=== PATIENT | female | born 1930 | race Two or more races ===

== ENCOUNTER 2018-09-25 19:02 | Inpatient (IN) | payer MEDICARE, OTHER ==
[~2018-09-25] VITALS: Ht 157.5 cm; Wt 64.4 kg
--- NOTE | 2018-09-25 19:03 | NUR ---
DR RUBIO AT BEDSIDE
--- NOTE | 2018-09-25 19:12 | NUR ---
KAEL GARCIA, FROM [facility], [facility] FOR GEROPSYCH ADMISSION, TO ER BED 7, HOOKED TO MONITOR, AWAITING MD THAKUR
--- NOTE | 2018-09-25 19:30 | NUR ---
PROCESSING ASSISTANT AT BEDSIDE FOR BLOOD DRAW
--- NOTE | 2018-09-25 19:38 | NUR ---
RECEIVED REPORT FROM JOAN STEINER FOR MAYA
--- NOTE | 2018-09-25 19:38 | NUR ---
REPORT GIVEN TO NGOC STEINER FOR MAYA
[2018-09-25 19:47] LABS: BASOPHILS % (AUTO) 0.6 % (0.0-2.0); EOSINOPHILS % (AUTO) 0.5 % (0.0-6.0); HEMATOCRIT 45 % (33-45); HEMOGLOBIN 14.2 g/dL (11.5-14.8); MEAN CORPUSCULAR HGB CONC 32 g/dl (31.0-36.0); MEAN CORPUSCULAR VOLUME 76 fL (82-100); MONOCYTES # (AUTO) 0.5 /CMM (0.1-1.30); MONOCYTES % (AUTO) 6.3 % (2.0-12.0); NEUTROPHILS # (AUTO) 6.1 /CMM (1.8-8.9); NEUTROPHILS % (AUTO) 79.6 % (43.0-81.0); PLATELET COUNT (AUTO) 439 /CMM (150-450); RED BLOOD CELL COUNT(AUTO) 5.95 MIL/uL (4.0-5.2); WHITE BLOOD COUNT (AUTO) 7.7 K/uL (4.3-11.0)
--- NOTE | 2018-09-25 19:50 | NUR ---
URINE COLLECTED AND SENT TO LAB
[2018-09-25 19:57] LABS: CALCIUM, SERUM 9.7 mg/dL (8.5-10.1); CARBON DIOXIDE 23 mmol/L (21-32); CHLORIDE 100 mmol/L (98-107); CREATININE 0.6 mg/dL (0.6-1.3); GLUCOSE 129 mg/dL (74-106); POTASSIUM 3.6 mmol/L (3.5-5.1); SODIUM SERUM 136 mmol/L (136-145); UREA NITROGEN, BLOOD 10 mg/dL (7-18)
[2018-09-25 20:04] LABS: ALANINE AMINOTRANSFERASE 10 U/L (12-78); ALBUMIN 3.8 g/dL (3.4-5.0); ALCOHOL, BLOOD < 3 mg/dL (0-0); ALKALINE PHOSPHATASE 96 U/L (46-116); ASPARTATE AMINOTRANSFERASE 14 U/L (15-37); BILIRUBIN,DIRECT 0.1 mg/dL (0.0-0.2); BILIRUBIN,TOTAL 0.5 mg/dL (0.2-1.0); TOTAL PROTEIN, SERUM 7.6 g/dL (6.4-8.2)
[2018-09-25 20:04] LABS: APPEARANCE,URINE Clear (CLEAR); BILIRUBIN,URINE Negative (NEGATIVE); BLOOD, URINE Trace-lysed Ery/uL (NEGATIVE); COLOR,URINE Yellow (YELLOW); KETONES,URINE 80 (NEGATIVE); LEUKOCYTE ESTERASE ,URINE Negative (NEGATIVE); NITRITE, URINE Negative (NEGATIVE); PROTEIN,URINE 100 mg/dl (NEGATIVE); UGLUCOSE Negative (NEGATIVE); UROBILINOGEN,URINE 0.2 EU/dL (0.2)
[2018-09-25 20:06] LABS: ACETAMINOPHEN < 2 ug/ml (10-30); SALICYLATE < 2.8 mg/dL (2.8-20.0)
--- NOTE | 2018-09-25 20:10 | NUR ---
PT HYPERTENSIVE, MD AWARE
[2018-09-25] MEDS ORDERED: CLONIDINE HCL 0.1 MG TABLET ONE ×2 (20:18→20:19)
[2018-09-25 20:23] LABS: BACTERIA,URINE Moderate /HPF (None Seen); RBC,URINE 2-4/HPF /HPF (0-2); SQUAMOUS EPITHELIAL CELL,UR Few /HPF (None Seen); URINE AMORPHOUS URATE Few /HPF (None Seen); WBC,URINE 0-2 /HPF (0-3)
[2018-09-25] MEDS ORDERED: CLONIDINE HCL 0.1 MG TABLET PO ONE (20:30)
--- NOTE | 2018-09-25 21:01 | NUR ---
PT RESTING COMFORTABLY IN BED. AAOX3. BP IMPROVED, MD AWARE
--- NOTE | 2018-09-25 22:18 | NUR ---
GAVE REPORT TO MEL STEINER FOR MAYA
[2018-09-25] MEDS ORDERED: DONE10TA44 PO (22:32)
[2018-09-25] MEDS ORDERED: TRAZ-214 PO (22:32)
[2018-09-25] MEDS ORDERED: CYAN-24 PO (22:32)
[2018-09-25] MEDS ORDERED: ASCO500T9 PO (22:32)
[2018-09-25] MEDS ORDERED: GABA-534 PO (22:32)
[2018-09-25] MEDS ORDERED: SIME125T62 PO (22:32)
[2018-09-25] MEDS ORDERED: RISP1TAB27 PO (22:32)
[2018-09-25] MEDS ORDERED: ZINC220T PO (22:32)
[2018-09-25] MEDS ORDERED: FLUT16SP16 NS (22:32)
[2018-09-25] MEDS ORDERED: SUCR1TAB31 PO (22:32)
[2018-09-25] MEDS ORDERED: OMEP20CA10 PO (22:32)
[2018-09-25] MEDS ORDERED: METF-440 PO (22:32)
[2018-09-25] MEDS ORDERED: VITA113O5 TP (22:32)
[2018-09-25] MEDS ORDERED: MELO-105 PO (22:32)
[2018-09-25] MEDS ORDERED: CELE200C PO (22:32)
[2018-09-25] MEDS ORDERED: BISA-79 PO (22:32)
--- NOTE | 2018-09-25 23:01 | NUR ---
PT TRANSFERRED TO [facility] 219 VIA GURMIRELLA WITH EMT
[2018-09-25] MEDS ORDERED: SUCRALFATE 1 G TABLET PO SCH (23:30)
[2018-09-25] MEDS ORDERED: ACETAMINOPHEN 325 MG TABLET PO PRN (23:30)
[2018-09-25] MEDS ORDERED: BISACODYL (5 MG) 5 MG TABLET.DR PO SCH (23:30)
[2018-09-25] MEDS ORDERED: ONDANSETRON HCL/PF 4 MG/2 ML VIAL IVP PRN (23:30)
[2018-09-25] MEDS ORDERED: HYDROCODONE/APAP 5/325MG 1 EACH TABLET PO PRN (23:30)
[2018-09-25] MEDS ORDERED: MAG HYDROX/AL HYDROX/SIMETH 30 ML UDC PO PRN (23:30)
[2018-09-25] MEDS ORDERED: MAGNESIUM HYDROXIDE 30 ML UDC PO PRN (23:30)
[2018-09-26] MEDS ORDERED: MAG HYDROX/AL HYDROX/SIMETH 30 ML UDC PO PRN
[2018-09-26] MEDS ORDERED: MAGNESIUM HYDROXIDE 30 ML UDC PO PRN
[2018-09-26] MEDS ORDERED: LORAZEPAM 0.5 MG TABLET PO PRN
[2018-09-26] MEDS ORDERED: TEMAZEPAM 7.5 MG CAPSULE PO PRN
[2018-09-26] MEDS ORDERED: ACETAMINOPHEN 325 MG TABLET PO PRN
--- NOTE | 2018-09-26 00:44 | NUR ---
admitted this 87 years old female from E.R patient was place on 5150 hold due to dangers to other trying to hitting the staff. patient has history of schizophrenia,, advise explain and serve to the patient patient refused to sign the consent paper, body assessment is done with 2 RN sacral area has a old wound red pic is taken and place in the chart patient is asleep right now will continues monitor the patient for safety and fall
[2018-09-26 07:33] LABS: CHOLESTEROL 197 mg/dL (<200); HDL CHOLESTEROL 42 mg/dL (40-60); LDL 139 mg/dL (0-99); TRIGLYCERIDES 150 mg/dL (30-150)
[2018-09-26 07:41] LABS: ALANINE AMINOTRANSFERASE 13 U/L (12-78); ALBUMIN 3.6 g/dL (3.4-5.0); ALKALINE PHOSPHATASE 79 U/L (46-116); ASPARTATE AMINOTRANSFERASE 10 U/L (15-37); BILIRUBIN,TOTAL 0.7 mg/dL (0.2-1.0); CALCIUM, SERUM 9.6 mg/dL (8.5-10.1); CARBON DIOXIDE 24 mmol/L (21-32); CHLORIDE 101 mmol/L (98-107); CREATININE 1.1 mg/dL (0.6-1.3); GLUCOSE 122 mg/dL (74-106); MAGNESIUM 2.1 mg/dL (1.8-2.4); POTASSIUM 4.2 mmol/L (3.5-5.1); SODIUM SERUM 136 mmol/L (136-145); TOTAL PROTEIN, SERUM 6.9 g/dL (6.4-8.2); UREA NITROGEN, BLOOD 18 mg/dL (7-18)
[2018-09-26 08:00] VITALS: BP 101/63
[2018-09-26] MEDS ORDERED: GLUCERNA SHAKE 237 ML CAN PO SCH (08:00)
[2018-09-26] MEDS: PANTOPRAZOLE 40 MG TABLET.DR PO SCH (08:54)
[2018-09-26] MEDS: ZINC SULFATE 220 MG CAPSULE PO SCH (08:54)
[2018-09-26] MEDS: risperiDONE 1 MG TABLET PO SCH ×2 (08:54→16:31)
[2018-09-26] MEDS: ASCORBIC ACID 500 MG TABLET PO SCH (08:54)
[2018-09-26] MEDS: METFORMIN 500 MG TABLET PO SCH ×2 (08:54→16:31)
[2018-09-26] MEDS: DONEPEZIL 5 MG TABLET PO SCH (08:54)
[2018-09-26] MEDS: GABAPENTIN 300 MG CAPSULE PO SCH ×3 (08:54→16:31)
[2018-09-26] MEDS: SIMETHICONE 80 MG TAB.CHEW PO SCH ×3 (08:55→16:31)
[2018-09-26] MEDS: CYANOCOBALAMIN 500 MCG TABLET PO SCH (08:55)
[2018-09-26] MEDS: GLUCERNA SHAKE 237 ML CAN PO SCH ×2 (08:56→16:33)
[2018-09-26] MEDS: Z GUARD REMEDY 2 OZ OINT TP PRN (09:00)
[2018-09-26] MEDS: FLUTICASONE PROPIONATE 16 GM BOTTLE NS SCH ×2 (09:00→16:35)
--- NOTE | 2018-09-26 12:16 | NUR ---
SW contacted Ute Archer, websphere administrator at [facility] [address] [facility], [place] [address] who confirmed pt is able to return once stable for discharge.
--- NOTE | 2018-09-26 12:18 | NUR ---
SW contacted pts daughter Indu Bush [phone] for discharge planning and collateral information.
--- NOTE | 2018-09-26 13:38 | NUR ---
INITIAL DISCHARGE PLAN: Per patient's daughter Indu [phone], pt will return to [facility] [id number] [place] [address] . RADHA spoke with Ute Archer, defense travel administrator who confirmed pt is able to return once stable for discharge. RADHA will help form a safe and proper discharge in collaboration with .
--- NOTE | 2018-09-26 15:26 | NUR ---
SW received DPOA paperwork from patient's daughter Indu [phone] via fax.
[2018-09-26 16:06] VITALS: BP 107/63
--- NOTE | 2018-09-26 18:35 | NUR ---
GPS/RN-NOTES PER RAILWAY SWITCH OPERATOR STAFF PATIENT DID NOT URINATE SINCE MORNING, BLADDER SCAN SHOWS 365ML URINE.PATIENT EAT AND DRINK DURING THE DAY. CALLED [facility] FOR DNP EVANGELISTA (SPOKE TO STEPHANIE ) . STILL AWAITING FOR DARIA NAIDU CALL BACK. WILL ENDORSE TO INCOMING NURSE FOR F/U AND CONTINUITY OF CARE.
--- NOTE | 2018-09-26 19:30 | NUR ---
GPS RN NOTE, RECEIVED PATIENT AWAKE AND IN BED NO S/S OR COMPLAINTS OF PAIN AT THIS TIME. PATIENT IS DISPLAYING NO S/S OF APPARENT DISTRESS AT THIS TIME. PATIENT BREATHING IS UNLABORED WITH EQUAL RISE AND FALL OF THE CHEST. PATIENT IS ALERT AND ORIENTED X 2 ON ROOM AIR WITH A SPO2 0F 96%. PATIENT IS MED COMPLAINT, DISORGANIZED, CONFUSED AT TIMES, AND NEEDS REORIENTATION. PATIENT DENIES SUICIDE AND HOMICIDAL IDEATIONS AT THIS TIME. PATIENT ASSISTED WITH TURNING AND REPOSITIONING Q2HR AND PRN FOR COMFORT AND CIRCULATION. PATIENT HAS NO NEEDS AT THIS TIME. PATIENT EDUCATED ON THE USE OF THE CALL CELESTIN. PATIENT BED SIDE RAILS ARE UP X 2 FOR SAFETY, BED IS LOCKED AND LOW. WILL CONTINUE TO MONITOR AND MAINTAIN SAFETY Q15 MIN WITH THE HELP OF STAFF.
[2018-09-26] MEDS ORDERED: IV NS 0.9% 1,000 ML BAG IV ONE (20:30)
--- NOTE | 2018-09-26 20:30 | NUR ---
GPS RN NOTE, PATIENT VITAL SIGNS ARE FOLLOWS B/P 100/48, PULSE 58, TEMP 98.1, RES 18, SPO2 96%. PAGED [facility] AND INFORMED WINIFRED WYNN OF MY FINDINGS. WINIFRED WYNN ORDERED TO GIVE 1 LITER OF NORMAL SALINE BOLUS AND TO HAVE A BMP, MAG, PHOS DRAWN IN THE A.M. ALL ORDERS NOTED AND CARRIED OUT. WILL CONTINUE TO MONITOR THIS PATIENT.
[2018-09-27] VITALS: BP 109/46
--- NOTE | 2018-09-27 02:50 | NUR ---
GPS RN NOTE, PATIENT HAS A COMPLAINT OF CONSTIPATION AND IS REQUESTING DULCOLAX AT THIS TIME. PATIENT VITAL SIGNS ARE STABLE. GAVE DULCOLAX 10 MG PO PRN. WILL REASSESS FOR CONSTIPATION AND I WILL CONTINUE TO MONITOR THIS PATIENT.
[2018-09-27 07:06] LABS: BASOPHILS # (AUTO) 0.1 /CMM (0.0-0.2); BASOPHILS % (AUTO) 0.7 % (0.0-2.0); HEMATOCRIT 31 % (33-45); HEMOGLOBIN 10.2 g/dL (11.5-14.8); LYMPHOCYTES # (AUTO) 1.2 /CMM (0.8-4.8); LYMPHOCYTES % (AUTO) 14.9 % (20.0-44.0); MEAN CORPUSCULAR HGB CONC 33 g/dl (31.0-36.0); MEAN CORPUSCULAR VOLUME 73 fL (82-100); MONOCYTES # (AUTO) 0.6 /CMM (0.1-1.30); NEUTROPHILS # (AUTO) 5.8 /CMM (1.8-8.9); NEUTROPHILS % (AUTO) 74.4 % (43.0-81.0); PLATELET COUNT (AUTO) 404 /CMM (150-450); RED BLOOD CELL COUNT(AUTO) 4.24 MIL/uL (4.0-5.2); WHITE BLOOD COUNT (AUTO) 7.8 K/uL (4.3-11.0)
[2018-09-27 07:18] LABS: ALANINE AMINOTRANSFERASE 18 U/L (12-78); ALBUMIN 3.1 g/dL (3.4-5.0); ALKALINE PHOSPHATASE 71 U/L (46-116); ASPARTATE AMINOTRANSFERASE 10 U/L (15-37); BILIRUBIN,TOTAL 0.5 mg/dL (0.2-1.0); CALCIUM, SERUM 8.9 mg/dL (8.5-10.1); CARBON DIOXIDE 25 mmol/L (21-32); CHLORIDE 97 mmol/L (98-107); CREATININE 0.9 mg/dL (0.6-1.3); GLUCOSE 110 mg/dL (74-106); MAGNESIUM 1.9 mg/dL (1.8-2.4); PHOSPHORUS 3.7 mg/dL (2.5-4.9); POTASSIUM 3.3 mmol/L (3.5-5.1); SODIUM SERUM 132 mmol/L (136-145); TOTAL PROTEIN, SERUM 5.9 g/dL (6.4-8.2); UREA NITROGEN, BLOOD 22 mg/dL (7-18)
[2018-09-27 08:00] VITALS: BP 154/63
[2018-09-27] MEDS: GABAPENTIN 300 MG CAPSULE PO SCH ×3 (08:19→16:56)
[2018-09-27] MEDS: ASCORBIC ACID 500 MG TABLET PO SCH (08:19)
[2018-09-27] MEDS: PANTOPRAZOLE 40 MG TABLET.DR PO SCH (08:19)
[2018-09-27] MEDS: SIMETHICONE 80 MG TAB.CHEW PO SCH ×4 (08:20→17:00)
[2018-09-27] MEDS: risperiDONE 1 MG TABLET PO SCH ×2 (08:20→16:56)
[2018-09-27] MEDS: METFORMIN 500 MG TABLET PO SCH ×2 (08:20→16:57)
[2018-09-27] MEDS: DONEPEZIL 5 MG TABLET PO SCH (08:20)
[2018-09-27] MEDS: CYANOCOBALAMIN 500 MCG TABLET PO SCH (08:21)
[2018-09-27] MEDS: ZINC SULFATE 220 MG CAPSULE PO SCH (08:26)
[2018-09-27] MEDS: FLUTICASONE PROPIONATE 16 GM BOTTLE NS SCH ×3 (08:47→17:00)
[2018-09-27] MEDS: GLUCERNA SHAKE 237 ML CAN PO SCH ×2 (08:47→17:06)
--- NOTE | 2018-09-27 09:28 | NUR ---
WOUND CARE CONSULT: PT PRESENTS WITH SACRAL SCARRING, PRESENT ON ADMISSION. RECOMMENDATIONS MADE FOR SKIN PROTECTION. DISCUSSED WITH NURSING STAFF. CURRENT CHRISTA SCORE IS 17. WILL SEE PRN. NAYLOR IN AGREEMENT WITH PLAN OF CARE. Addendum: 09/27/18 at 6657 by LAMIN COVARRUBIAS WNDNU Amended: Links added.
[2018-09-27 09:58] LABS: CHOLESTEROL 154 mg/dL (<200); HDL CHOLESTEROL 36 mg/dL (40-60); LDL 108 mg/dL (0-99); TRIGLYCERIDES 159 mg/dL (30-150)
[2018-09-27] MEDS ORDERED: POTASSIUM CHLORIDE 20 MEQ TAB.PRT.SR PO ONE (11:30)
[2018-09-27 16:00] VITALS: BP 155/83
--- NOTE | 2018-09-27 17:13 | NUR ---
GPS RN NOTES: PATIENT NOTED TO BE CONFUSED AT THIS TIME. SHE REFUSED SOME OF HER MEDICATION-FLUNASE AND MYLICON. PER PATIENT "I AM NOT SICK, NOTHING IS WRONG WITH ME". NURSE EXPLAINED TO THE PATIENT THREE TIMES BUT PATIENT STILL REFUSED. WILL ENDORSE TO ARTIFICIAL INSEMINATOR NURSE.
[2018-09-27 20:00] VITALS: BP 158/69
[2018-09-27 21:15] VITALS: BP 143/70
--- NOTE | 2018-09-28 02:58 | NUR ---
GPS-RN NOTES: PATIENT NOT HAVING BOWEL MOVEMENT FOR 3 DAYS. NOTIFIED WINIFRED OBTAINED ORDERS OF DULCOLAX NOTED AND CARRIED OUT. UPON ADMINISTERING MEDICATION VIA RECTAL, NOTED WITH BM SOFT BROWN STOOL, IN LARGE AMOUNT. DULCOLAX SUPPOSITORY NOT ADMINISTERED AND WASTED ON MED DISPOSAL.
[2018-09-28] MEDS ORDERED: BISACODYL SUPP (10 MG) 10 MG/SUPP.RECT SUPP.RECT RC PRN (03:00)
[2018-09-28 08:00] VITALS: BP 148/72
[2018-09-28] MEDS: METFORMIN 500 MG TABLET PO SCH ×2 (08:17→16:34)
[2018-09-28] MEDS: risperiDONE 1 MG TABLET PO SCH ×2 (08:17→16:34)
[2018-09-28] MEDS: SIMETHICONE 80 MG TAB.CHEW PO SCH ×3 (08:17→16:45)
[2018-09-28] MEDS: DONEPEZIL 5 MG TABLET PO SCH (08:17)
[2018-09-28] MEDS: CYANOCOBALAMIN 500 MCG TABLET PO SCH (08:17)
[2018-09-28] MEDS: ZINC SULFATE 220 MG CAPSULE PO SCH (08:17)
[2018-09-28] MEDS: PANTOPRAZOLE 40 MG TABLET.DR PO SCH (08:17)
[2018-09-28] MEDS: ASCORBIC ACID 500 MG TABLET PO SCH (08:17)
[2018-09-28] MEDS: GABAPENTIN 300 MG CAPSULE PO SCH ×3 (08:19→16:33)
[2018-09-28] MEDS: FLUTICASONE PROPIONATE 16 GM BOTTLE NS SCH ×2 (08:19→16:34)
[2018-09-28] MEDS: GLUCERNA SHAKE 237 ML CAN PO SCH ×2 (08:51→16:33)
[2018-09-28 16:00] VITALS: BP 112/52
[2018-09-28] MEDS: Z GUARD REMEDY 2 OZ OINT TP PRN (18:12)
[2018-09-28 20:00] VITALS: BP 152/75
[2018-09-29 08:00] VITALS: BP 144/70
[2018-09-29 08:13] LABS: BASOPHILS % (AUTO) 0.5 % (0.0-2.0); EOSINOPHILS % (AUTO) 0.7 % (0.0-6.0); HEMATOCRIT 36 % (33-45); HEMOGLOBIN 11.6 g/dL (11.5-14.8); LYMPHOCYTES # (AUTO) 1.1 /CMM (0.8-4.8); LYMPHOCYTES % (AUTO) 12.9 % (20.0-44.0); MEAN CORPUSCULAR HGB CONC 32 g/dl (31.0-36.0); MEAN CORPUSCULAR VOLUME 74 fL (82-100); MONOCYTES # (AUTO) 0.7 /CMM (0.1-1.30); MONOCYTES % (AUTO) 8.2 % (2.0-12.0); NEUTROPHILS # (AUTO) 6.7 /CMM (1.8-8.9); NEUTROPHILS % (AUTO) 77.7 % (43.0-81.0); PLATELET COUNT (AUTO) 444 /CMM (150-450); RED BLOOD CELL COUNT(AUTO) 4.93 MIL/uL (4.0-5.2); WHITE BLOOD COUNT (AUTO) 8.6 K/uL (4.3-11.0)
[2018-09-29 08:23] LABS: IRON, SERUM 34 ug/dl (50-175); TOTAL IRON BINDING CAPACITY 312 ug/dl (250-450)
[2018-09-29 08:26] LABS: CALCIUM, SERUM 9.4 mg/dL (8.5-10.1); CARBON DIOXIDE 28 mmol/L (21-32); CHLORIDE 102 mmol/L (98-107); CREATININE 0.7 mg/dL (0.6-1.3); GLUCOSE 134 mg/dL (74-106); POTASSIUM 3.8 mmol/L (3.5-5.1); SODIUM SERUM 138 mmol/L (136-145); UREA NITROGEN, BLOOD 16 mg/dL (7-18)
[2018-09-29] MEDS: GABAPENTIN 300 MG CAPSULE PO SCH ×3 (09:12→17:40)
[2018-09-29] MEDS: CYANOCOBALAMIN 500 MCG TABLET PO SCH (09:13)
[2018-09-29] MEDS: SIMETHICONE 80 MG TAB.CHEW PO SCH ×3 (09:13→17:40)
[2018-09-29] MEDS: PANTOPRAZOLE 40 MG TABLET.DR PO SCH (09:14)
[2018-09-29] MEDS: risperiDONE 1 MG TABLET PO SCH ×2 (09:14→17:40)
[2018-09-29] MEDS: METFORMIN 500 MG TABLET PO SCH ×2 (09:14→17:40)
[2018-09-29] MEDS: DONEPEZIL 5 MG TABLET PO SCH (09:14)
[2018-09-29] MEDS: ZINC SULFATE 220 MG CAPSULE PO SCH (09:14)
[2018-09-29] MEDS: ASCORBIC ACID 500 MG TABLET PO SCH (09:14)
[2018-09-29] MEDS: GLUCERNA SHAKE 237 ML CAN PO SCH ×2 (09:15→17:41)
[2018-09-29] MEDS: FLUTICASONE PROPIONATE 16 GM BOTTLE NS SCH ×2 (09:56→17:41)
[2018-09-29 16:00] VITALS: BP 155/51
[2018-09-29] MEDS: FERROUS SULFATE (325 MG) 325 MG/TAB TABLET PO SCH (17:40)
[2018-09-29 20:24] VITALS: BP 149/75
[2018-09-30 08:00] VITALS: BP 172/76
[2018-09-30] MEDS: risperiDONE 1 MG TABLET PO SCH ×2 (09:00→16:48)
[2018-09-30] MEDS: GABAPENTIN 300 MG CAPSULE PO SCH ×3 (09:00→16:49)
[2018-09-30] MEDS: FERROUS SULFATE (325 MG) 325 MG/TAB TABLET PO SCH (09:00)
[2018-09-30] MEDS: SIMETHICONE 80 MG TAB.CHEW PO SCH ×3 (09:00→16:49)
[2018-09-30] MEDS: CYANOCOBALAMIN 500 MCG TABLET PO SCH (09:00)
[2018-09-30] MEDS: FLUTICASONE PROPIONATE 16 GM BOTTLE NS SCH ×2 (09:00→16:49)
[2018-09-30] MEDS: ASCORBIC ACID 500 MG TABLET PO SCH (09:00)
[2018-09-30] MEDS: METFORMIN 500 MG TABLET PO SCH ×2 (09:00→16:49)
[2018-09-30] MEDS: ZINC SULFATE 220 MG CAPSULE PO SCH (09:00)
[2018-09-30] MEDS: DONEPEZIL 5 MG TABLET PO SCH (09:00)
[2018-09-30] MEDS: PANTOPRAZOLE 40 MG TABLET.DR PO SCH (09:49)
[2018-09-30] MEDS: GLUCERNA SHAKE 237 ML CAN PO SCH ×2 (09:49→16:50)
--- NOTE | 2018-09-30 14:50 | NUR ---
SW contacted pts daughter Indu Bush [phone] and left voicemail for call back.
[2018-09-30 16:00] VITALS: BP 173/78
[2018-09-30] MEDS: CLONIDINE HCL 0.1 MG TABLET PO PRN (16:49)
[2018-09-30 20:00] VITALS: BP 133/67
[2018-09-30] MEDS: ZOLPIDEM TARTRATE 5 MG TABLET PO PRN (21:50)
[2018-10-01 08:00] VITALS: BP 170/95
[2018-10-01] MEDS: risperiDONE 1 MG TABLET PO SCH ×2 (08:18→17:00)
[2018-10-01] MEDS: GABAPENTIN 300 MG CAPSULE PO SCH ×3 (08:18→17:00)
[2018-10-01] MEDS: DONEPEZIL 5 MG TABLET PO SCH (08:18)
[2018-10-01] MEDS: CLONIDINE HCL 0.1 MG TABLET PO PRN (08:18)
--- NOTE | 2018-10-01 08:30 | NUR ---
GPS. PT REPORTING HEEL PAIN THIS AM, LEFT HEEL WITH REDNESS AND BUM TO INTERNATAL ASPECT OF LEFT HEEL. AREA PHOTOGRAPHED, HEEL PROTECTOR PLACED, AND WC CONSULT REQUESTED. AREA CONTINUES TO BE OFFLOADED AND PT REPOSITIONED Q2HR OR SOONER.
[2018-10-01] MEDS: FERROUS SULFATE (325 MG) 325 MG/TAB TABLET PO SCH (08:59)
[2018-10-01] MEDS: ZINC SULFATE 220 MG CAPSULE PO SCH (08:59)
[2018-10-01] MEDS: CYANOCOBALAMIN 500 MCG TABLET PO SCH (08:59)
[2018-10-01] MEDS: PANTOPRAZOLE 40 MG TABLET.DR PO SCH (08:59)
[2018-10-01] MEDS: METFORMIN 500 MG TABLET PO SCH ×2 (08:59→17:00)
[2018-10-01] MEDS: SIMETHICONE 80 MG TAB.CHEW PO SCH ×3 (08:59→17:00)
[2018-10-01] MEDS: ASCORBIC ACID 500 MG TABLET PO SCH (08:59)
[2018-10-01] MEDS: GLUCERNA SHAKE 237 ML CAN PO SCH ×2 (09:00→17:07)
[2018-10-01] MEDS: FLUTICASONE PROPIONATE 16 GM BOTTLE NS SCH ×2 (09:00→16:45)
--- NOTE | 2018-10-01 09:20 | NUR ---
SW contacted pts daughter Indu Bush [phone] and left voicemail for call back.
--- NOTE | 2018-10-01 12:00 | NUR ---
GPS. PT NOTED WITH VERY LOW URINE OUTPUT. BLADDER NON DISTENDED OR ABNORMAL ON PALPATION. FLUIDS BEING ENCOURAGED.
--- NOTE | 2018-10-01 13:28 | NUR ---
WOUND CARE CONSULT: PT SEEN FOR RE-OPENED PRESSURE ULCER OVER SCAR TISSUE. SCAR TISSUE NOTED TO BE PRESENT ON ADMISSION. BLANCHABLE REDNESS NOTED TO LEFT HEEL. PT WAS PREVIOUSLY COMBATIVE AND UNCOOPERATIVE PER NURSING STAFF. PT IS INCONTINENT. ALL SKIN PROTECTION AND WOUND CARE RECOMMENDATIONS DISCUSSED WITH NURSING STAFF. WILL SEE PRN. Rahat Bello IN AGREEMENT WITH PLAN OF CARE. Addendum: 10/01/18 at 1331 by LAMIN COVARRUBIAS WNDNU Amended: Links added.
[2018-10-01] MEDS ORDERED: HYDROGEL DRESSING 90 GM TUBE TP PRN (14:00)
--- NOTE | 2018-10-01 14:00 | NUR ---
PT OOB IN CHAIR IN COMMON AREA. PT WITH 1100CC PO WATER INTAKE AND REPORTS STARTING TO URINATE. REMAINS REPORTING THIRST AND REQUESTING WATER.
[2018-10-01 16:00] VITALS: BP 158/66
[2018-10-01] MEDS: HYDROGEL DRESSING 90 GM TUBE TP SCH (17:10)
[2018-10-01 20:17] VITALS: BP 132/67
[2018-10-01] MEDS: ZOLPIDEM TARTRATE 5 MG TABLET PO PRN (21:51)
[2018-10-02 08:00] VITALS: BP 137/66
[2018-10-02] MEDS: GLUCERNA SHAKE 237 ML CAN PO SCH ×2 (08:48→16:07)
[2018-10-02] MEDS: FERROUS SULFATE (325 MG) 325 MG/TAB TABLET PO SCH (08:48)
[2018-10-02] MEDS: risperiDONE 1 MG TABLET PO SCH ×2 (08:49→16:05)
[2018-10-02] MEDS: CYANOCOBALAMIN 500 MCG TABLET PO SCH (08:49)
[2018-10-02] MEDS: GABAPENTIN 300 MG CAPSULE PO SCH ×3 (08:49→16:05)
[2018-10-02] MEDS: METFORMIN 500 MG TABLET PO SCH ×2 (08:49→16:05)
[2018-10-02] MEDS: SIMETHICONE 80 MG TAB.CHEW PO SCH ×3 (08:49→16:05)
[2018-10-02] MEDS: PANTOPRAZOLE 40 MG TABLET.DR PO SCH (08:49)
[2018-10-02] MEDS: ZINC SULFATE 220 MG CAPSULE PO SCH (08:49)
[2018-10-02] MEDS: ASCORBIC ACID 500 MG TABLET PO SCH (08:49)
[2018-10-02] MEDS: DONEPEZIL 5 MG TABLET PO SCH (08:49)
[2018-10-02] MEDS: FLUTICASONE PROPIONATE 16 GM BOTTLE NS SCH ×2 (08:53→16:07)
[2018-10-02] MEDS: HYDROGEL DRESSING 90 GM TUBE TP SCH (08:55)
[2018-10-02] MEDS: Z GUARD REMEDY 2 OZ OINT TP PRN (08:56)
--- NOTE | 2018-10-02 12:29 | NUR ---
SW contacted pts daughter Indu Bush [phone] and discussed pts progress. SW informed her that per psychiatrist recent progress note pt is less confused, less disorganized, less paranoid, less suspicious, less responding to internal stimuli and has been compliant with her medication and no agitation was currently noted. SW also informed her that pt was drinking plenty of fluids. SW stated that pt may be discharging on 10/03/18 or Sunday10/04/18. Daughter was happy to hear pt was doing better and agreed with discharge plan.
[2018-10-02 16:00] VITALS: BP 152/78
[2018-10-02 20:05] VITALS: BP 154/79
[2018-10-03 08:00] VITALS: BP 150/82
[2018-10-03] MEDS: GLUCERNA SHAKE 237 ML CAN PO SCH (08:00)
--- NOTE | 2018-10-03 08:38 | NUR ---
RADHA contacted Ute Archer, childcare administrator at [facility] [address] [facility], [place] [address] to inform her pt is discharge on this present day. Ute stated that she will only accept pt if she is discharged as a hospice pt. RADHA informed her that pt does not have a terminal illness and therefore it was against the law the make an illness that does not exist. She then stated that she will not accept pt. Addendum: 10/03/18 at 0844 by ROSEANN GARCIA Due to pt having a bed sore on her foot and pt mental illness.
--- NOTE | 2018-10-03 08:42 | NUR ---
RADHA contacted pts daughter Indu Bush [phone] to inform her board and care will not accept due to pts mental illness. RADHA then recommended pt be discharged to a penitentiary. Daughter agreed.
--- NOTE | 2018-10-03 08:44 | NUR ---
SW faxed SNF referral to alex Newman at [facility] Address: [address] [place] [address] and alex Condon at [facility] Address: [address] [place] [address] for review.
[2018-10-03] MEDS: FERROUS SULFATE (325 MG) 325 MG/TAB TABLET PO SCH (09:13)
[2018-10-03] MEDS: ZINC SULFATE 220 MG CAPSULE PO SCH (09:13)
[2018-10-03] MEDS: GABAPENTIN 300 MG CAPSULE PO SCH ×2 (09:13→12:26)
[2018-10-03] MEDS: SIMETHICONE 80 MG TAB.CHEW PO SCH ×2 (09:13→12:26)
[2018-10-03] MEDS: ASCORBIC ACID 500 MG TABLET PO SCH (09:13)
[2018-10-03] MEDS: risperiDONE 1 MG TABLET PO SCH (09:13)
[2018-10-03] MEDS: METFORMIN 500 MG TABLET PO SCH (09:13)
[2018-10-03] MEDS: FLUTICASONE PROPIONATE 16 GM BOTTLE NS SCH (09:14)
[2018-10-03] MEDS: DONEPEZIL 5 MG TABLET PO SCH (09:14)
[2018-10-03] MEDS: HYDROGEL DRESSING 90 GM TUBE TP SCH (09:14)
[2018-10-03] MEDS: PANTOPRAZOLE 40 MG TABLET.DR PO SCH (09:14)
[2018-10-03] MEDS: CYANOCOBALAMIN 500 MCG TABLET PO SCH (09:14)
--- NOTE | 2018-10-03 10:51 | NUR ---
DR. VELOZ GAVE AN ORDER TO D/C HOLD AND D/C TO [facility], TO CONTINUE SAME MEDS INCLUDING PRN AND TO FOLLOW UP WITH PSYCH AND MEDICAL DOCTORS.
--- NOTE | 2018-10-03 11:09 | NUR ---
DR. ANAND MADE AWARE OF THE DISCHARGE AND SAID TO CONTINUE SAME MEDS.
--- NOTE | 2018-10-03 12:46 | NUR ---
DISCHARGE NOTE: Pt will be discharged at 2:00pm via [facility] ambulance trip#[phone] to [facility] [address] [facility] [id number] . Pts daughter Indu [phone] has been notified and agreed with discharge plan. Pts mood is euthymic with congruent affect. Pt denied visual/auditory hallucinations and denied suicidal/homicidal ideations. Pt will be under the care of Maple Sugar Maker: Dr. Eliu Harry Address: [address] [place] [address] [address], [place] [address] and Psychiatrist: Psychiatrist: Dr. Monroy [address] [facility] [address], [place] [address] [phone]. The multidisciplinary exitcare form was done, printed, signed, and given to the patient.
[2018-10-03 14:00] VITALS: BP 134/80
--- NOTE | 2018-10-03 15:01 | NUR ---
pt discharge dr. strickland. solid state tester dr. ortega agrees with discharge plan. pt is alert oriented x 1- 2. calm and cooperative. denies s/i and/or h/i at time of discharge. vital sign stable. no acute distress noted. skin assessment completed. pictures taken. medication reconciliation done. exitcare completed. pt going on SNF [facility]. pt left in stable condition.
[2018-11-14] MEDS ORDERED: SULF1TAB48 PO (08:26)
[2018-11-14] MEDS ORDERED: NITR100C6 PO ×2 (08:34→08:35)
== END 2018-10-03 15:15 | DRG 885 ==
LOC: EDBD 19:06 → ER 19:06 → GPS 22:07
PROVIDERS: ADMIT Psychiatry & Neurology Psychiatry; ATTEND Psychiatry & Neurology Psychiatry
DX: F29 Unspecified psychosis not due to a substance or known physiological condition (principal); F20.9 Schizophrenia, unspecified; F03.90 Unspecified dementia, unspecified severity, without behavioral disturbance, psychotic disturbance, mood disturbance, and anxiety; E78.5 Hyperlipidemia, unspecified; E11.9 Type 2 diabetes mellitus without complications; R62.7 Adult failure to thrive; M79.7 Fibromyalgia; Z73.6 Limitation of activities due to disability; I10 Essential (primary) hypertension; Z91.14 Patient's other noncompliance with medication regimen; Z79.899 Other long term (current) drug therapy; D50.9 Iron deficiency anemia, unspecified; L89.159 Pressure ulcer of sacral region, unspecified stage; D64.9 Anemia, unspecified
CPT/HCPCS: 36415; 71045-TC; 80048-TC; 80053-TC; 80061-TC; 80076-TC; 80305; 81000-TC; 82728-TC; 82962-TC; 83540-TC; 83735-TC; 84100-TC; 85025-TC; 87081-TC; 87086-TC; A6248; G0480; J7030

== ENCOUNTER 2018-10-17 12:43 | Inpatient (IN) | payer MEDICARE, OTHER ==
[~2018-10-17] VITALS: Ht 152.4 cm; Wt 54.4 kg
[~2018-10-17 12:43] MED LIST: ASCO500T9 PO; BISA-79 PO; CELE200C PO; CYAN-24 PO; DONE10TA44 PO; FLUT16SP16 NS; GABA-534 PO; MELO-105 PO; METF-440 PO; OMEP20CA10 PO; SIME125T62 PO; SUCR1TAB31 PO; TRAZ-214 PO; VITA113O5 TP; ZINC220T PO
--- NOTE | 2018-10-17 12:48 | NUR ---
SEEN BY DR LEIVA
--- NOTE | 2018-10-17 12:53 | NUR ---
BIB PA FROM [facility],ABDOMIANL DISTENSION/PAIN AND VOMITING NOTED 1 HR STEAM HEATING INSTALLER. PT AOX3, HYPERTENSIVE AND TACHYCARDIC. HAS SMALL SACRAL ULCER. DENIES SOB, DIZZINESS, WEAKNESS. HOOKED TO MONITOR.
[2018-10-17] MEDS ORDERED: IV NS 0.9% 500 ML BAG IV ONE (13:00)
[2018-10-17 13:05] LABS: BASOPHILS % (AUTO) 0.3 % (0.0-2.0); EOSINOPHILS % (AUTO) 0.3 % (0.0-6.0); HEMATOCRIT 41 % (33-45); LYMPHOCYTES # (AUTO) 0.7 /CMM (0.8-4.8); LYMPHOCYTES % (AUTO) 7.5 % (20.0-44.0); MEAN CORPUSCULAR HGB CONC 32 g/dl (31.0-36.0); MEAN CORPUSCULAR VOLUME 76 fL (82-100); MONOCYTES # (AUTO) 0.3 /CMM (0.1-1.30); MONOCYTES % (AUTO) 3.1 % (2.0-12.0); NEUTROPHILS # (AUTO) 8.2 /CMM (1.8-8.9); NEUTROPHILS % (AUTO) 88.8 % (43.0-81.0); PLATELET COUNT (AUTO) 424 /CMM (150-450); RED BLOOD CELL COUNT(AUTO) 5.34 MIL/uL (4.0-5.2); WHITE BLOOD COUNT (AUTO) 9.2 K/uL (4.3-11.0)
[2018-10-17 13:26] LABS: CALCIUM, SERUM 9.5 mg/dL (8.5-10.1); CARBON DIOXIDE 26 mmol/L (21-32); CHLORIDE 107 mmol/L (98-107); CREATININE 0.7 mg/dL (0.6-1.3); GLUCOSE 158 mg/dL (74-106); SODIUM SERUM 146 mmol/L (136-145); UREA NITROGEN, BLOOD 15 mg/dL (7-18)
[2018-10-17 13:32] LABS: POTASSIUM 2.8 mmol/L (3.5-5.1)
[2018-10-17 13:33] LABS: ALANINE AMINOTRANSFERASE 23 U/L (12-78); ALBUMIN 3.4 g/dL (3.4-5.0); ALKALINE PHOSPHATASE 119 U/L (46-116); ASPARTATE AMINOTRANSFERASE 16 U/L (15-37); BILIRUBIN,DIRECT 0.1 mg/dL (0.0-0.2); BILIRUBIN,TOTAL 0.4 mg/dL (0.2-1.0); LIPASE 72 U/L (73-393); TOTAL PROTEIN, SERUM 7.2 g/dL (6.4-8.2)
--- NOTE | 2018-10-17 13:55 | NUR ---
PT WAS GIVEN LAXATIVE RESPIRATORY CARE SPECIALIST. CLEANED DIAPER WITH HELP OF NURSE AND TECH. OBTAINED URINE VIA STRAIGHT CATH PER MD ORDER. SAMPLES SENT TO LAB.
[2018-10-17 14:06] LABS: APPEARANCE,URINE Cloudy (CLEAR); BILIRUBIN,URINE Negative (NEGATIVE); BLOOD, URINE Trace-lysed Ery/uL (NEGATIVE); COLOR,URINE Yellow (YELLOW); KETONES,URINE Negative (NEGATIVE); LEUKOCYTE ESTERASE ,URINE Small (NEGATIVE); NITRITE, URINE Negative (NEGATIVE); PROTEIN,URINE Negative (NEGATIVE); UGLUCOSE 100 MG/DL mg/dL (NEGATIVE); UROBILINOGEN,URINE 0.2 EU/dL (0.2)
[2018-10-17 14:12] LABS: BACTERIA,URINE Few /HPF (None Seen); SQUAMOUS EPITHELIAL CELL,UR Few /HPF (None Seen); URINE AMORPHOUS PHOSPHATES Moderate /HPF (None Seen)
[2018-10-17] MEDS ORDERED: POTASSIUM CL. PREMIX PERIPHER. 50 ML ONE ×2 (14:17→15:51)
[2018-10-17] MEDS ORDERED: LORAZEPAM INJ 2 MG/ML VIAL ONE (14:18)
--- NOTE | 2018-10-17 14:26 | NUR ---
BED 115-1
[2018-10-17] MEDS ORDERED: LORAZEPAM INJ 2 MG/ML VIAL IV ONE (14:30)
[2018-10-17] MEDS: POTASSIUM CL. PREMIX PERIPHER. 50 ML IV SCH ×2 (14:32→15:55)
--- NOTE | 2018-10-17 14:40 | NUR ---
REPORT GIVEN TO OBDULIA LOREDO FOR 115-1 TELE
--- NOTE | 2018-10-17 15:00 | NUR ---
PT TAKEN TO CT VIA INES
--- NOTE | 2018-10-17 15:09 | NUR ---
PT BACK FROM [facility]. [facility] WELL. CONT TO INFUSE POTASSIUM
--- NOTE | 2018-10-17 16:15 | NUR ---
POINT OF CARE SPECIALISTFERTILIZER PROCESSING SUPERVISOR NOTES RECEIVED PT FROM ER TO ROOM 115-1.ALERT/ORIENTED X1,CONFUSED.ON TELE HR IS SR WITH 80'S.IV LINE IS ON RIGHT AC G20,SITE IS CLEAN,DRY AND INTACT.NO INFILTRATION NOTED.ON ROOM AIR,TOLERATING WELL.SAFETY IS MAINTAINED AT ALL TIMES.CALL LIGHT IS WITHIN REACH.WILL CONTINUE TO MONITOR THE PT CLOSELY.
--- NOTE | 2018-10-17 16:20 | NUR ---
PT TRANSFERRED TO FLOOR. POTASSIUM CONT INFUSING.
[2018-10-17] MEDS ORDERED: DEXTROSE 50%-WATER 50 ML DISP.SYRIN IV PRN (17:00)
[2018-10-17] MEDS ORDERED: ONDANSETRON HCL/PF 4 MG/2 ML VIAL IVP PRN (17:00)
[2018-10-17] MEDS ORDERED: ACETAMINOPHEN 650 MG/SUPP.RECT RC PRN (17:00)
[2018-10-17] MEDS ORDERED: MORPHINE SULFATE INJ 2 MG/ML DISP.SYRIN IV PRN (17:00)
[2018-10-17 17:05] VITALS: BP 173/69
[2018-10-17 17:13] VITALS: BP 173/69
[2018-10-17] MEDS: IV D5/0.45 NACL 1,000 ML IV PRN (17:42)
[2018-10-17] MEDS: ENOXAPARIN SODIUM 40 MG/0.4 ML DISP.SYRIN SQ SCH (17:42)
[2018-10-17] MEDS: BLOOD SUGAR DIAGNOSTIC 1 EACH STRIP IN SCH (17:59)
[2018-10-17] MEDS: INSULIN REGULAR, HUMAN 100 UNIT/ML 3 ML VIAL SQ PRN (17:59)
--- NOTE | 2018-10-17 19:00 | NUR ---
GREENHOUSE TECHNICIAN CLOSING NOTES PT IS LYING ON BED,LOOKS CONFUSED.IV LINE IS ON PLACE AND STARTS IV FLUIDS.ENDORSED TO JUKEBOX COIN COLLECTOR RN FOR MAYA.
--- NOTE | 2018-10-17 19:37 | NUR ---
AIR CARRIER OPERATIONS INSPECTOR NOTES FERRERA CATHETER FR16 IS INSERTED.NO COMPLICATIONS NOTED.
[2018-10-17 20:00] VITALS: BP 196/107
[2018-10-17] MEDS ORDERED: hydrALAZINE HCL IV 20 MG VIAL IV ONE (20:30)
[2018-10-18 00:01] VITALS: BP 156/87
[2018-10-18] MEDS: BLOOD SUGAR DIAGNOSTIC 1 EACH STRIP IN SCH ×5 (00:39→23:37)
[2018-10-18] MEDS: INSULIN REGULAR, HUMAN 100 UNIT/ML 3 ML VIAL SQ PRN ×2 (00:42→18:20)
[2018-10-18 04:00] VITALS: BP 190/99
[2018-10-18] MEDS: IV D5/0.45 NACL 1,000 ML IV PRN ×2 (06:31→23:26)
[2018-10-18 07:13] LABS: BASOPHILS % (AUTO) 0.3 % (0.0-2.0); EOSINOPHILS % (AUTO) 0.2 % (0.0-6.0); HEMATOCRIT 36 % (33-45); HEMOGLOBIN 11.5 g/dL (11.5-14.8); LYMPHOCYTES # (AUTO) 1.1 /CMM (0.8-4.8); LYMPHOCYTES % (AUTO) 12.5 % (20.0-44.0); MEAN CORPUSCULAR HGB CONC 32 g/dl (31.0-36.0); MEAN CORPUSCULAR VOLUME 75 fL (82-100); MONOCYTES # (AUTO) 0.4 /CMM (0.1-1.30); MONOCYTES % (AUTO) 4.8 % (2.0-12.0); NEUTROPHILS # (AUTO) 7.3 /CMM (1.8-8.9); NEUTROPHILS % (AUTO) 82.2 % (43.0-81.0); PLATELET COUNT (AUTO) 371 /CMM (150-450); RED BLOOD CELL COUNT(AUTO) 4.73 MIL/uL (4.0-5.2); WHITE BLOOD COUNT (AUTO) 8.9 K/uL (4.3-11.0)
[2018-10-18 07:26] LABS: CHOLESTEROL 177 mg/dL (<200); HDL CHOLESTEROL 37 mg/dL (40-60); LDL 124 mg/dL (0-99); THYROID STIMULATING HORMONE 5.556 uIU/mL (0.358-3.74); TRIGLYCERIDES 198 mg/dL (30-150)
[2018-10-18 07:29] LABS: CALCIUM, SERUM 8.6 mg/dL (8.5-10.1); CARBON DIOXIDE 24 mmol/L (21-32); CHLORIDE 105 mmol/L (98-107); CREATININE 0.5 mg/dL (0.6-1.3); GLUCOSE 119 mg/dL (74-106); MAGNESIUM 1.9 mg/dL (1.8-2.4); PHOSPHORUS 2.4 mg/dL (2.5-4.9); SODIUM SERUM 142 mmol/L (136-145); UREA NITROGEN, BLOOD 10 mg/dL (7-18)
--- NOTE | 2018-10-18 07:30 | NUR ---
RN NOTES RECEIVED ASLEEP, AWAKEN BY VERBAL STIMULI. ALERT/ORIENTED X1-2, ABLE TO RESPOND APPROPRIATELY TO QUESTIONS. NO SOB, BREATHING EVEN AND UNLABORED, TOLERATING ROOM AIR SATING AT 97%, NO COMPLAINTS OF PAIN AT THIS TIME. SR ON TELE AT 80'S.IV LINE IS ON RIGHT AC G20,SITE IS CLEAN,DRY AND INTACT, PATENT ON FLUSHING.NO INFILTRATION NOTED. WITH ONGOING D51/2 RUNNING AT 100CC/HR. SAFETY MEASURES OBSERVED AND MAINTAINED. SR UP. BED LOW AND LOCKED POSITION. CALL LIGHT WITHIN REACH.WILL CONTINUE TO MONITOR PT CLOSELY. Addendum: 10/18/18 at 1040 by DEEP PICKENS RN PATIENT WITH BILATERAL SOFT RESTRAINTS. REMOVED AND REPLACED TO ASSESS FOR SKIN INTEGRITY; NO DISCOLORATION NOR SKIN BREAKDOWN NOTED AT THIS TIME
--- NOTE | 2018-10-18 07:39 | NUR ---
WOUND CARE CONSULT: PT PRESENTS WITH SCARRING TO SACRAL AREA WITH SOME SCARRING EXTENDING TO BILATERAL BUTTOCKS, PRESENT ON ADMISSION. MAISHA MAGALLON NOTED. ALL SKIN PROTECTION RECOMMENDATIONS DISCUSSED WITH NURSING STAFF. KURT ISOFLEX LOW AIRLOSS BED TO BE PLACED. WILL SEE PRN. NAYLOR IN AGREEMENT WITH PLAN OF CARE. CURRENT CHRISTA SCORE IS 13. Addendum: 10/18/18 at 0740 by LAMIN COVARRUBIAS WNDNU Amended: Links added.
[2018-10-18 08:00] VITALS: BP 179/69
[2018-10-18] MEDS: PANTOPRAZOLE 40 MG VIAL IV SCH (08:27)
[2018-10-18] MEDS: Z GUARD REMEDY 2 OZ OINT TP PRN ×2 (08:56→10:25)
[2018-10-18] MEDS: POTASSIUM CL. PREMIX PERIPHER. 50 ML IV SCH ×6 (10:23→18:19)
[2018-10-18] MEDS: Z GUARD REMEDY 2 OZ OINT TP SCH (10:26)
[2018-10-18 12:00] VITALS: BP 178/65
[2018-10-18] MEDS ORDERED: K PHOS NEUTRAL 250 MG TABLET PO ONE (13:30)
[2018-10-18] MEDS: LISINOPRIL (20MG) 20 MG TABLET PO SCH ×2 (14:14→17:23)
[2018-10-18 16:00] VITALS: BP 155/87
--- NOTE | 2018-10-18 16:54 | NUR ---
GENERAL HANDLING SUPERVISOR GAVIN TRIED IV REINSERTION UNSUCCESSFUL,OBTAINED MIDLINE ORDERS.
[2018-10-18] MEDS: ENOXAPARIN SODIUM 40 MG/0.4 ML DISP.SYRIN SQ SCH (17:23)
--- NOTE | 2018-10-18 19:15 | NUR ---
TELE/RN INITIAL RECEIVED PT IN BED, ALERT AND VERBALLY RESPONSIVE. ON ROOM AIR, NO SOB NOTED. SR HR 70S ON TELE. WITH ONGOING IVF D5 1/2 NS AT 100 ML/HR INFUSING WELL ON RIGHT AC G#20 IV. F/C INTACT AND IN PLACED, DRAINING YELLOW URINE BY GRAVITY. HOB ELEVATED/ SAFETY MEASURES IN PLACED. CALL LIGHT WITHIN EASY REACH. WILL CONT TO MONITOR
--- NOTE | 2018-10-18 19:48 | NUR ---
RN NOTES ENDORSED PATIENT FOR CONTINUITY OF CARE. ON STABLE CONDITION, NO SIGNIFICANT CHANGES WITHIN THE SHIFT, ALL NURSING NEEDS ATTENDED AND MET. SAFETY MEASURES AND ASPIRATION PRECAUTION IN PLACE AT ALL TIMES. CALL LIGHT WITHIN REACH
[2018-10-18 20:00] VITALS: BP 150/83
[2018-10-19] VITALS (7 sets, daily range): BP systolic 150–184; BP diastolic 82–103
[2018-10-19] MEDS: BLOOD SUGAR DIAGNOSTIC 1 EACH STRIP IN SCH ×3 (06:26→18:31)
[2018-10-19] MEDS: INSULIN REGULAR, HUMAN 100 UNIT/ML 3 ML VIAL SQ PRN (06:28)
--- NOTE | 2018-10-19 06:49 | NUR ---
RN NOTES PT IN STABLE CONDITION. NO ACUTE CHANGES THROUGHOUT SHIFT. NANCY MIDLINE KEPT INTACT AND PATENT. FC REMAINED INTACT AND IN PLACED. ALL NEEDS ANTICIPATED. SAFETY MEASURES MAINTAINED. ENDORSED TO AM SHIFT RN FOR MAYA
[2018-10-19 07:12] LABS: CALCIUM, SERUM 8.7 mg/dL (8.5-10.1); CARBON DIOXIDE 25 mmol/L (21-32); CHLORIDE 105 mmol/L (98-107); CREATININE 0.6 mg/dL (0.6-1.3); GLUCOSE 159 mg/dL (74-106); POTASSIUM 3.1 mmol/L (3.5-5.1); SODIUM SERUM 140 mmol/L (136-145); UREA NITROGEN, BLOOD 6 mg/dL (7-18)
[2018-10-19] MEDS: LISINOPRIL (20MG) 20 MG TABLET PO SCH ×2 (09:00→17:37)
[2018-10-19] MEDS: Z GUARD REMEDY 2 OZ OINT TP SCH (09:00)
[2018-10-19] MEDS: IV D5/0.45 NACL 1,000 ML IV PRN (10:35)
[2018-10-19] MEDS: PANTOPRAZOLE 40 MG VIAL IV SCH (10:35)
[2018-10-19] MEDS: POTASSIUM CHLORIDE 20 MEQ TAB.PRT.SR PO SCH ×2 (11:56→12:44)
[2018-10-19] MEDS: ENOXAPARIN SODIUM 40 MG/0.4 ML DISP.SYRIN SQ SCH (17:38)
--- NOTE | 2018-10-19 18:56 | NUR ---
pt discharged to snf ([facility]) via [facility], not in distress, no sob. report given to elizabeth STEINER from [place]. left with belongings
[2018-11-14] MEDS ORDERED: SULF1TAB48 PO (08:26)
[2018-11-14] MEDS ORDERED: NITR100C6 PO ×2 (08:34→08:35)
== END 2018-10-19 18:50 | DRG 392 ==
LOC: ER 12:45 → TELE1 15:09
PROC: 05H533Z Insertion of Infusion Device into Right Subclavian Vein, Percutaneous Approach (ICD-10-PCS; principal; 2018-10-18)
PROC: B546ZZA Ultrasonography of Right Subclavian Vein, Guidance (ICD-10-PCS; 2018-10-18)
DX: A08.4 Viral intestinal infection, unspecified (principal); E87.6 Hypokalemia; E11.9 Type 2 diabetes mellitus without complications; K59.00 Constipation, unspecified; M79.7 Fibromyalgia; D35.01 Benign neoplasm of right adrenal gland; I10 Essential (primary) hypertension; Z79.84 Long term (current) use of oral hypoglycemic drugs; K44.9 Diaphragmatic hernia without obstruction or gangrene; F03.90 Unspecified dementia, unspecified severity, without behavioral disturbance, psychotic disturbance, mood disturbance, and anxiety; Z79.899 Other long term (current) drug therapy
CPT/HCPCS: 36415; 36569; 71045-TC; 80048-TC; 80061-TC; 80076-TC; 81000-TC; 82962-TC; 83690-TC; 83735-TC; 84100-TC; 84443-TC; 84484-TC; 85025-TC; 85730-TC; 87081-TC; 92611-TC; A6402; C9113; G0378; J0360; J1650; J1815; J2060; J2270; J3480; J3490; J7040

== ENCOUNTER 2018-11-11 15:32 | Inpatient (IN) | payer MEDICARE, OTHER ==
[~2018-11-11] VITALS: Ht 160 cm; Wt 45.4 kg
--- NOTE | 2018-11-11 15:32 | NUR ---
PT BIB PA FOR ELEVATED WBC AND INCREASED ORAL SECRETION. PT IS AAOX1, NOT IN RESPIRATORY DISTRESS, V/S STABLE, HOOKED TO MONITOR, , KEPT RESTED AND COMFORTABLE, WILL CONTINUE TO MONITOR.
--- NOTE | 2018-11-11 15:48 | NUR ---
SEEN AND EXAMINED BY DR. LEIVA.
--- NOTE | 2018-11-11 15:50 | NUR ---
IV LINE ESTABLISHED, LABS DRAWNED AND SENT TO LAB.
--- NOTE | 2018-11-11 15:58 | NUR ---
TRAFFIC REPRESENTATIVE AT BEDSIDE FOR XRAY.
[2018-11-11] MEDS ORDERED: MULT-447 PO (16:00)
[2018-11-11] MEDS ORDERED: IV NS 0.9% 1,000 ML BAG IV ONE (16:00)
[2018-11-11] MEDS ORDERED: NA P133E RC (16:00)
[2018-11-11] MEDS ORDERED: ACET-868 PO ×2 (16:00)
[2018-11-11] MEDS ORDERED: HYDR-4384 PO (16:00)
[2018-11-11] MEDS ORDERED: MAGN400O6 PO (16:00)
[2018-11-11] MEDS ORDERED: SIME80TA15 PO (16:00)
[2018-11-11] MEDS ORDERED: DOCU-141 PO (16:00)
[2018-11-11 16:07] LABS: BASOPHILS # (AUTO) 0.1 /CMM (0.0-0.2); BASOPHILS % (AUTO) 0.9 % (0.0-2.0); EOSINOPHILS % (AUTO) 0.2 % (0.0-6.0); HEMATOCRIT 41 % (33-45); HEMOGLOBIN 12.9 g/dL (11.5-14.8); LYMPHOCYTES # (AUTO) 0.9 /CMM (0.8-4.8); LYMPHOCYTES % (AUTO) 6.8 % (20.0-44.0); MEAN CORPUSCULAR HGB CONC 32 g/dl (31.0-36.0); MEAN CORPUSCULAR VOLUME 79 fL (82-100); MONOCYTES # (AUTO) 0.6 /CMM (0.1-1.30); MONOCYTES % (AUTO) 4.2 % (2.0-12.0); NEUTROPHILS % (AUTO) 87.9 % (43.0-81.0); PLATELET COUNT (AUTO) 470 /CMM (150-450); RED BLOOD CELL COUNT(AUTO) 5.18 MIL/uL (4.0-5.2); WHITE BLOOD COUNT (AUTO) 13.7 K/uL (4.3-11.0)
--- NOTE | 2018-11-11 16:13 | NUR ---
URINE SPECIMEN COLLECTED VIA STRAIGHT CATH AND SENT TO LAB.
[2018-11-11 16:27] LABS: ALANINE AMINOTRANSFERASE 19 U/L (12-78); ALBUMIN 2.9 g/dL (3.4-5.0); ALKALINE PHOSPHATASE 137 U/L (46-116); ASPARTATE AMINOTRANSFERASE 13 U/L (15-37); BILIRUBIN,DIRECT 0.1 mg/dL (0.0-0.2); BILIRUBIN,TOTAL 0.6 mg/dL (0.2-1.0); CALCIUM, SERUM 9.7 mg/dL (8.5-10.1); CARBON DIOXIDE 28 mmol/L (21-32); CHLORIDE 105 mmol/L (98-107); CREATININE 0.6 mg/dL (0.6-1.3); GLUCOSE 139 mg/dL (74-106); SODIUM SERUM 143 mmol/L (136-145); UREA NITROGEN, BLOOD 16 mg/dL (7-18)
[2018-11-11 16:28] LABS: POTASSIUM 2.8 mmol/L (3.5-5.1)
[2018-11-11 16:33] LABS: BILIRUBIN,URINE Negative (NEGATIVE); BLOOD, URINE Negative Ery/uL (NEGATIVE); COLOR,URINE Yellow (YELLOW); KETONES,URINE 15 (NEGATIVE); LEUKOCYTE ESTERASE ,URINE Trace (NEGATIVE); NITRITE, URINE Positive (NEGATIVE); PROTEIN,URINE 30 mg/dl (NEGATIVE); UGLUCOSE Negative (NEGATIVE)
[2018-11-11 16:35] LABS: APPEARANCE,URINE CLOUDY (CLEAR)
[2018-11-11 16:40] LABS: BACTERIA,URINE Many /HPF (None Seen); RBC,URINE 0-2 /HPF (0-2); SQUAMOUS EPITHELIAL CELL,UR Few /HPF (None Seen)
[2018-11-11 16:41] LABS: URINE AMORPHOUS URATE Moderate /HPF (None Seen)
[2018-11-11] MEDS ORDERED: POTASSIUM CL. PREMIX PERIPHER. 50 ML IV SCH (17:30)
[2018-11-11] MEDS ORDERED: POTASSIUM CL. PREMIX PERIPHER. 50 ML ONE ×2 (17:35→17:43)
--- NOTE | 2018-11-11 17:35 | NUR ---
SEEN AND EXAMINED BY JORGE FLETCHER
[2018-11-11] MEDS ORDERED: MAGNESIUM HYDROXIDE 30 ML UDC PO PRN (19:00)
[2018-11-11] MEDS ORDERED: ACETAMINOPHEN 325 MG TABLET PO PRN (19:00)
[2018-11-11] MEDS ORDERED: ONDANSETRON HCL/PF 4 MG/2 ML VIAL IVP PRN (19:00)
[2018-11-11] MEDS ORDERED: DEXTROSE 50%-WATER 50 ML DISP.SYRIN IV PRN (19:00)
[2018-11-11] MEDS ORDERED: Z GUARD REMEDY 2 OZ OINT TP PRN (19:00)
[2018-11-11] MEDS ORDERED: MAG HYDROX/AL HYDROX/SIMETH 30 ML UDC PO PRN (19:00)
--- NOTE | 2018-11-11 19:10 | NUR ---
RN NOTE PT BROUGHT UP AT THIS TIME, AND ENDORSED TO CHETNA WATER PUMP OPERATOR OBDULIA FOR MAYA.
--- NOTE | 2018-11-11 19:50 | NUR ---
RN ADMITTING NOTES Pt ARRIVED ON FLOOR DURING CHANGE OF SHIFT TIME. PER DAYSHIFT OBDULIA HANSEN REPORT, Pt IS FROM [facility]. Pt IS A/OX1-2, WITH GARBLED SPEECH. Pt IS ABLE TO SAY NAME & KNOWS SHE IS IN SOME TYPE OF HOSPITAL, BUT IS UNABLE TO SAY CURRENT DATE & YEAR AND DOES NOT KNOW WHY SHE IS HERE. Pt IS ON TELE MONITOR, SR 90s. IV ACCESS ON RFA #18G. PER REPORT 2ND BAG OF POTASSIUM IS RUNNING, THAT IS BEING CONTINUED FROM ER. PER DAYSHIFT RN REPORT Pt FAILED SWALLOW STUDY IN ER. CURRENTLY PLACED ON NPO BY JORGE PENDING FURTHER RECS OF SWALLOW EVAL. SAFETY MEASURES IN PLACE. ASPIRATION PRECAUTION IN PLACE. BED LOW, LOCKED, HOB ELEVATED, SIDE RAILS UP, CALL LIGHT AND BEDSIDE TABLE WITHIN REACH. WILL CONTINUE TO MONITOR Pt's CONDITION AND SAFETY THROUGHOUT THE NIGHT.
[2018-11-11 20:00] VITALS: BP 159/102
[2018-11-11] MEDS: CEFTRIAXONE 1 G in IV D5W 50 ML IV SCH (20:20)
[2018-11-11] MEDS: ENOXAPARIN SODIUM 40 MG/0.4 ML DISP.SYRIN SQ SCH (20:23)
[2018-11-11] MEDS: IV NS 0.9% 1,000 ML IV PRN (20:24)
[2018-11-11] MEDS: TRAZODONE 50 MG TABLET PO SCH (22:00)
[2018-11-11] MEDS: DONEPEZIL 5 MG TABLET PO SCH (22:00)
[2018-11-11] MEDS: BLOOD SUGAR DIAGNOSTIC 1 EACH STRIP IN SCH (23:04)
[2018-11-12] VITALS: BP 145/110
[2018-11-12 04:00] VITALS: BP 132/88
[2018-11-12] MEDS: BLOOD SUGAR DIAGNOSTIC 1 EACH STRIP IN SCH ×4 (06:53→23:54)
--- NOTE | 2018-11-12 06:59 | NUR ---
RN CLOSING NOTES NO SIGNIFICANT CHANGES IN Pt's CONDITION. Pt STABLE PER BASELINE. NO S/S OF ACUTE DISTRESS OR SEVERE SOB NOTED DURING THE NIGHT. ALL NEEDS MET AND ATTENDED TO. SAFETY MEASURES IN PLACE. WILL ENDORSE TO DAYSHIFT RN FOR Pt's MAYA. Addendum: 11/12/18 at 0748 by RAJINDER BAEZ RN TELE READING 95
[2018-11-12 07:07] LABS: BASOPHILS # (AUTO) 0.1 /CMM (0.0-0.2); BASOPHILS % (AUTO) 0.7 % (0.0-2.0); EOSINOPHILS % (AUTO) 0.1 % (0.0-6.0); HEMATOCRIT 41 % (33-45); HEMOGLOBIN 13.1 g/dL (11.5-14.8); LYMPHOCYTES # (AUTO) 0.7 /CMM (0.8-4.8); LYMPHOCYTES % (AUTO) 6.9 % (20.0-44.0); MEAN CORPUSCULAR HGB CONC 32 g/dl (31.0-36.0); MEAN CORPUSCULAR VOLUME 79 fL (82-100); MONOCYTES # (AUTO) 0.4 /CMM (0.1-1.30); MONOCYTES % (AUTO) 4.1 % (2.0-12.0); NEUTROPHILS # (AUTO) 9.3 /CMM (1.8-8.9); NEUTROPHILS % (AUTO) 88.2 % (43.0-81.0); PLATELET COUNT (AUTO) 424 /CMM (150-450); RED BLOOD CELL COUNT(AUTO) 5.18 MIL/uL (4.0-5.2); WHITE BLOOD COUNT (AUTO) 10.6 K/uL (4.3-11.0)
[2018-11-12] MEDS: PANTOPRAZOLE 40 MG TABLET.DR PO SCH (07:30)
[2018-11-12 07:37] LABS: CHOLESTEROL 169 mg/dL (<200); HDL CHOLESTEROL 35 mg/dL (40-60); LDL 116 mg/dL (0-99); TRIGLYCERIDES 174 mg/dL (30-150)
[2018-11-12 07:40] LABS: CALCIUM, SERUM 9.2 mg/dL (8.5-10.1); CARBON DIOXIDE 24 mmol/L (21-32); CHLORIDE 107 mmol/L (98-107); CREATININE 0.6 mg/dL (0.6-1.3); GLUCOSE 125 mg/dL (74-106); MAGNESIUM 1.8 mg/dL (1.8-2.4); PHOSPHORUS 2.6 mg/dL (2.5-4.9); POTASSIUM 3.2 mmol/L (3.5-5.1); SODIUM SERUM 144 mmol/L (136-145); UREA NITROGEN, BLOOD 10 mg/dL (7-18)
[2018-11-12 08:00] VITALS: BP 149/92
--- NOTE | 2018-11-12 08:08 | NUR ---
RN NOTES PATIENT IN BED RESTING, NOTED WITH LOTS OF SECRETIONS, CURRENTLY ON NPO BY JORGE PENDING FURTHER RECS OF SWALLOW EVAL. BREATHING EVEN AND UNLABORED, NO SOB NOTED, HOB ELEVATED, SAFETY MEASURES IN PLACE. ASPIRATION PRECAUTION IN PLACE. BED LOW, LOCKED, SIDE RAILS UP, BED ALARM ON, CALL LIGHT AND BEDSIDE TABLE WITHIN REACH. WILL CONTINUE TO MONITOR.
[2018-11-12] MEDS: CELECOXIB 100 MG CAPSULE PO SCH (09:00)
[2018-11-12] MEDS: GABAPENTIN 300 MG CAPSULE PO SCH ×3 (09:00→16:15)
[2018-11-12] MEDS: FLUTICASONE PROPIONATE 16 GM BOTTLE NS SCH ×2 (09:00→16:15)
[2018-11-12] MEDS: ASCORBIC ACID 500 MG TABLET PO SCH (09:00)
[2018-11-12] MEDS: MULTIVIT W/MINERALS 1 TAB TABLET PO SCH (09:00)
[2018-11-12] MEDS: CYANOCOBALAMIN 500 MCG TABLET PO SCH (09:00)
[2018-11-12] MEDS: SIMETHICONE 80 MG TAB.CHEW PO SCH ×3 (09:00→16:15)
[2018-11-12] MEDS: ZINC SULFATE 220 MG CAPSULE PO SCH (09:00)
[2018-11-12] MEDS: DOCUSATE SODIUM 100 MG CAPSULE PO SCH (09:00)
[2018-11-12] MEDS: POTASSIUM CL. PREMIX PERIPHER. 50 ML IV SCH ×4 (09:16→11:43)
--- NOTE | 2018-11-12 09:40 | NUR ---
WOUND CARE CONSULT: PT PRESENTS WITH REOPENED SACRAL ULCER OVER PREVIOUS SCARRING AND BREASTFOLD REDNESS, PRESENT ON ADMISSION. RECOMMENDATIONS MADE FOR WOUND CARE AND SKIN PROTECTION. DISCUSSED WITH NURSING STAFF. NO SURGICAL CONSULT NEEDED PER DR DOAN. WILL SEE PRN. PT ON KURT ISOFLEX LOW AIRLOSS BED. WILL SEE PRN. IN AGREEMENT WITH PLAN OF CARE. Addendum: 11/12/18 at 0942 by LAMIN COVARRUBIAS WNDNU Amended: Links added.
--- NOTE | 2018-11-12 09:57 | NUR ---
RN NOTES PATIENT A/OX2, REFUSING MEDICATIONS, REFUSED POTASSIUM CHLORIDE AND IVF, PATIENT FOUND PULLING OUT IV. DR. DOAN MADE AWARE.
[2018-11-12] MEDS ORDERED: HYDROGEL DRESSING 90 GM TUBE TP PRN (10:00)
--- NOTE | 2018-11-12 11:10 | NUR ---
RN NOTES PATIENT SEEN AND EVALUATED BY SPEECH THERAPIST WITH RECOMMENDATIONS.
--- NOTE | 2018-11-12 11:43 | NUR ---
RN NOTES PATIENT REFUSING BLOOD SUGAR CHECKS, EXPLAINED RISKS AND BENEFITS, STILL REFUSED.
[2018-11-12] MEDS: HYDROGEL DRESSING 90 GM TUBE TP SCH (11:47)
[2018-11-12 16:00] VITALS: BP 158/94
--- NOTE | 2018-11-12 18:35 | NUR ---
RN NOTES PATIENT HAS BEEN REFUSING TO HAVE IV INSERTION, MEDICATIONS AND ACCUCHECKS. DR. DOAN AWARE WITH NO NEW ORDER. PATIENT IS A DNR/DNI PER POLST FORM. PATIENT IN STABLE CONDITION. TURNED AND REPOSITIONED EVERY 2 HOURS, ASPIRATION PRECAUTION OBSERVED AT ALL TIMES. PATIENT NOTED COUGHING AFTER MEAL DURING DINNER, INSTRUCTED BOOT AND SADDLE REPAIR PERSON TO STOP THE FEEDING. WILL KEEP PATIENT NPO AT THIS TIME FOR SAFETY. AND WILL INFORM SPEECH THERAPIST AND MD. NEEDS ATTENDED AND MET. CALL LIGHT WITHIN REACH, WILL ENDORSE TO WASH TUB MACHINE OPERATOR FOR MAYA.
[2018-11-12] MEDS: CEFTRIAXONE 1 G in IV D5W 50 ML IV SCH (19:30)
--- NOTE | 2018-11-12 19:45 | NUR ---
RN OPENING NOTES [facility]. FOUND Pt RESTING IN BED. NO S/S OF ACUTE DISTRESS OR SOB NOTED. Pt IS A/OX2 (ALERT TO NAME & KNOWS SHE IS IN A HOSPITAL; HOWEVER CANNOT RECALL CURRENT DATE & YEAR). Pt CAN FOLLOW COMMANDS & ANSWER QUESTIONS WITH SHORT ANSWERS. HAS GARBLED SPEECH BUT IS VERBAL. [facility] RN, Pt PULLED OUT IV ACCESS AND IS REFUSING NEW IV ACCESS. MD WAS MADE AWARE. Pt HAS ALSO BEEN REFUSING PO MEDS DURING THE DAY; MD AWARE. SAFETY MEASURES IN PLACE. ASPIRATION PRECAUTION IN PLACE. BED LOW, LOCKED, HOB ELEVATED, SIDE RAILS UP, CALL LIGHT AND BEDSIDE TABLE WITHIN REACH. WILL CONTINUE TO MONITOR Pt's CONDITION AND SAFETY THROUGHOUT THE NIGHT.
[2018-11-12 20:00] VITALS: BP 131/72
--- NOTE | 2018-11-12 20:08 | NUR ---
RN NOTES Pt IS REFUSING NEW IV ACCESS AFTER IT WAS PULLED OUT. Pt HAS ALSO BEEN REFUSING TO TAKE MEDS DURING DAYSHIFT. WAS UNABLE TO ADMINISTER SCHEDULED ROCEPHIN SINCE THERE IS NO IV ACCESS.
[2018-11-12] MEDS: ENOXAPARIN SODIUM 40 MG/0.4 ML DISP.SYRIN SQ SCH (21:00)
[2018-11-12] MEDS: TRAZODONE 50 MG TABLET PO SCH (22:00)
[2018-11-12] MEDS: DONEPEZIL 5 MG TABLET PO SCH (22:00)
--- NOTE | 2018-11-13 | NUR ---
RN NOTES Pt REFUSED INSULIN. ATTEMPTED MULTIPLE TIMES TO EXPLAIN WHY SHE NEEDED THE INSULIN SHOT DUE TO HER HIGH BLOOD SUGAR BUT Pt KEPT REFUSING.
--- NOTE | 2018-11-13 00:19 | NUR ---
RN NOTES HAD TO WASTE MED ARICEPT & DESYREL. OPENED MED PACKAGE TO CRUSH IN APPLE SAUCE. WHEN Pt ATE THE APPLE SAUCE SHE SPIT IT BACK OUT REFUSING TO TAKE ANY MORE APPLE SAUCE. ATTEMPTED FEW MORE TRIES BUT Pt KEPT SPITTING THE APPLE SAUCE MIXED WITH THE CRUSH MEDS OUT.
[2018-11-13] MEDS: INSULIN REGULAR, HUMAN 100 UNIT/ML 3 ML VIAL SQ PRN ×3 (00:36→21:32)
--- NOTE | 2018-11-13 06:37 | NUR ---
RN NOTES Pt REFUSED AM LAB BLOOD DRAW
--- NOTE | 2018-11-13 06:45 | NUR ---
RN NOTES AC BG 133. Pt ALLOWED FOR ACCUCHECK BUT REFUSED INSULIN.
--- NOTE | 2018-11-13 06:46 | NUR ---
RN CLOSING NOTES NO SIGNIFICANT CHANGES IN Pt's CONDITION DURING THE NIGHT. Pt REMAINS STABLE PER BASELINE. NO S/S OF ACUTE DISTRESS OR SOB NOTED DURING THE SHIFT. ALL NEEDS MET AND ATTENDED TO. Pt RESTING IN BED. RESPIRATIONS EVEN AND UNLABORED. SAFETY MEASURES IN PLACE. BED LOW, LOCKED, HOB ELEVATED SIDE RAILS UP, CALL LIGHT AND BEDSIDE TABLE WITHIN REACH. BED ALARM ON. WILL ENDORSE TO DAYSHIFT RN FOR Pt's MAYA.
[2018-11-13] MEDS: BLOOD SUGAR DIAGNOSTIC 1 EACH STRIP IN SCH ×4 (07:13→21:30)
[2018-11-13] MEDS: PANTOPRAZOLE 40 MG TABLET.DR PO SCH (07:30)
--- NOTE | 2018-11-13 07:50 | NUR ---
RN NOTES PATIENT A/OX2, BREATHING EVEN AND UNLABORED, IN STABLE CONDITION. NO S/SX OF PAIN OR DISCOMFORT NOTED. NEEDS ATTENDED, CALL LIGHT WITHIN REACH, WILL CONTINUE TO MONITOR.
[2018-11-13 08:00] VITALS: BP 157/71
[2018-11-13] MEDS: GABAPENTIN 300 MG CAPSULE PO SCH ×3 (09:00→16:17)
[2018-11-13] MEDS: DOCUSATE SODIUM 100 MG CAPSULE PO SCH (09:00)
[2018-11-13] MEDS: SIMETHICONE 80 MG TAB.CHEW PO SCH ×3 (09:00→16:17)
[2018-11-13] MEDS: ASCORBIC ACID 500 MG TABLET PO SCH (09:00)
[2018-11-13] MEDS: MULTIVIT W/MINERALS 1 TAB TABLET PO SCH (09:00)
[2018-11-13] MEDS: CYANOCOBALAMIN 500 MCG TABLET PO SCH (09:00)
[2018-11-13] MEDS: ZINC SULFATE 220 MG CAPSULE PO SCH (09:00)
[2018-11-13] MEDS: FLUTICASONE PROPIONATE 16 GM BOTTLE NS SCH ×2 (09:00→16:17)
[2018-11-13] MEDS: CELECOXIB 100 MG CAPSULE PO SCH (09:00)
[2018-11-13 10:19] LABS: BASOPHILS % (AUTO) 0.4 % (0.0-2.0); EOSINOPHILS % (AUTO) 0.1 % (0.0-6.0); HEMATOCRIT 39 % (33-45); HEMOGLOBIN 12.3 g/dL (11.5-14.8); LYMPHOCYTES # (AUTO) 0.8 /CMM (0.8-4.8); LYMPHOCYTES % (AUTO) 6.6 % (20.0-44.0); MEAN CORPUSCULAR HGB CONC 32 g/dl (31.0-36.0); MEAN CORPUSCULAR VOLUME 78 fL (82-100); MONOCYTES # (AUTO) 0.5 /CMM (0.1-1.30); MONOCYTES % (AUTO) 4.2 % (2.0-12.0); NEUTROPHILS # (AUTO) 11.2 /CMM (1.8-8.9); NEUTROPHILS % (AUTO) 88.7 % (43.0-81.0); PLATELET COUNT (AUTO) 450 /CMM (150-450); RED BLOOD CELL COUNT(AUTO) 4.92 MIL/uL (4.0-5.2); WHITE BLOOD COUNT (AUTO) 12.7 K/uL (4.3-11.0)
[2018-11-13 10:28] LABS: CARBON DIOXIDE 27 mmol/L (21-32); CHLORIDE 104 mmol/L (98-107); CREATININE 0.6 mg/dL (0.6-1.3); GLUCOSE 188 mg/dL (74-106); SODIUM SERUM 143 mmol/L (136-145); UREA NITROGEN, BLOOD 14 mg/dL (7-18)
[2018-11-13 10:35] LABS: POTASSIUM 2.5 mmol/L (3.5-5.1)
[2018-11-13] MEDS: HYDROGEL DRESSING 90 GM TUBE TP SCH (10:37)
--- NOTE | 2018-11-13 11:10 | NUR ---
RN NOTES PAGED DR. DOAN. RELAYED K LEVEL OF 2.5, RECEIVED ORDER TO GIVE POTASSIUM CHLORIDE 80MEQ IV. ORDER NOTED AND CARRIED OUT. PATIENT AGREED TO HAVE PIV INSERTED. PIV INSERTED ON LEFT FA G20. PATENT AND FLUSHES WELL.
[2018-11-13] MEDS: POTASSIUM CL. PREMIX PERIPHER. 50 ML IV SCH ×8 (11:41→19:39)
[2018-11-13 16:00] VITALS: BP 153/88
--- NOTE | 2018-11-13 18:21 | NUR ---
RN NOTES PATIENT A/OX2, RR EVEN AND UNLABORED, NO SOB NOTED, PIV ON LFA STILL FLUSHES AND INTACT. NO S/SX OF PAIN OR DISCOMFORT NOTED. PATIENT STILL NOTED WITH COUGH. STILL REFUSING MEDICATIONS EXCEPT IV, EXPLAINED RISKS AND BENEFITS STILL REFUSED. NEEDS ATTENDED AND MET, TURNED AND REPOSITIONED EVERY 2 HOURS, WOUND TREATMENT RENDERED. SKIN CARE PROVIDED. CALL LIGHT WITHIN REACH, WILL ENDORSE TO PHLEBOTOMY TECHNICIAN FOR MAYA.
--- NOTE | 2018-11-13 19:30 | NUR ---
RECEIVED PT IN BED AWAKE AND RESPONSIVE. GARBLING SOME WORDS. BREATHING EVENLY. NO SOB. NO S/S OF PAIN OR DISCOMFORT. ON ONGOING IV POTASSIUM. IV SITE ON LFA INTACT AND PATENT WITH NO S/S OF INFECTION OR INFILTRATION. NEEDS ATTENDED. BED LOW LOCKED. SRX2. CALL LIGHT WITHIN REACH,. WILL CONT TO MONITOR
[2018-11-13 20:00] VITALS: BP 178/96
[2018-11-13] MEDS: CEFTRIAXONE 1 G in IV D5W 50 ML IV SCH (20:53)
[2018-11-13] MEDS: ENOXAPARIN SODIUM 40 MG/0.4 ML DISP.SYRIN SQ SCH (21:29)
[2018-11-13] MEDS: DONEPEZIL 5 MG TABLET PO SCH (21:30)
[2018-11-13] MEDS: TRAZODONE 50 MG TABLET PO SCH (21:30)
--- NOTE | 2018-11-13 21:30 | NUR ---
PT REFUSED PO NIGHT MEDICATIONS (ARICEPT AND TRAZODONE) . FSBS: 140 NO INSULIN COVERAGE PER SLIDING SCALE GIVEN DUE TO POOR ORAL INTAKE AND PT REFUSED SNACKS. WILL CONT TO MONITOR PT CLOSELY FOR S/S OF HYPO OR HYPERGLYCEMIA.
[2018-11-13] MEDS: IV NS 0.9% 1,000 ML IV PRN (21:33)
[2018-11-13] MEDS: hydrALAZINE HCL IV 20 MG VIAL IV PRN (22:48)
--- NOTE | 2018-11-13 22:51 | NUR ---
hydralazine given as ordered for sbp>165. will cont to monitor
[2018-11-13 23:25] VITALS: BP 119/80
--- NOTE | 2018-11-13 23:25 | NUR ---
RECHECKED ALEXANDR: 119/80. PT REMAINED COMFORTABLE. WILL CONT TO MONITOR ,
--- NOTE | 2018-11-14 01:12 | NUR ---
PT IN BED LAYING DOWN COMFORTABLY W/ NO S/S OF PAIN OR DISCOMFORT. WILL CONT TO MONITOR
--- NOTE | 2018-11-14 03:02 | NUR ---
ROUNDED. PT IN BED SLEEPING WELL W/ NAD.
--- NOTE | 2018-11-14 06:24 | NUR ---
PT IN BED RESTING COMFORTABLY. BREATHING EVENLY. STILL WITH OCCASIONAL WET COUGH. NO SOB. SKIN WARM AND DRY. NO ACUTE EVENT DURING THE NIGHT. NO S/S OF HYPO OR HYPERGLYCEMIA.NEEDS ATTENDED . CLEANED AND DRIED. GOOD SKIN CARE RENDERED. REPOSITIONED ROUTINELY. BED LOW LOCKED. CALL LIGHT WITHIN REACH, WILL CONT TO MONITOR AND WILL ENDORSE TO AM SHIFT FOR MAYA.
[2018-11-14] MEDS: BLOOD SUGAR DIAGNOSTIC 1 EACH STRIP IN SCH ×4 (06:43→21:56)
[2018-11-14 06:49] LABS: BASOPHILS # (AUTO) 0.1 /CMM (0.0-0.2); BASOPHILS % (AUTO) 0.5 % (0.0-2.0); EOSINOPHILS % (AUTO) 0.1 % (0.0-6.0); HEMATOCRIT 37 % (33-45); HEMOGLOBIN 12.2 g/dL (11.5-14.8); LYMPHOCYTES # (AUTO) 0.9 /CMM (0.8-4.8); LYMPHOCYTES % (AUTO) 7.9 % (20.0-44.0); MEAN CORPUSCULAR HGB CONC 33 g/dl (31.0-36.0); MEAN CORPUSCULAR VOLUME 78 fL (82-100); MONOCYTES # (AUTO) 0.4 /CMM (0.1-1.30); MONOCYTES % (AUTO) 3.6 % (2.0-12.0); NEUTROPHILS # (AUTO) 9.6 /CMM (1.8-8.9); NEUTROPHILS % (AUTO) 87.9 % (43.0-81.0); PLATELET COUNT (AUTO) 450 /CMM (150-450); RED BLOOD CELL COUNT(AUTO) 4.77 MIL/uL (4.0-5.2)
[2018-11-14 06:53] LABS: CARBON DIOXIDE 22 mmol/L (21-32); CHLORIDE 109 mmol/L (98-107); CREATININE 0.5 mg/dL (0.6-1.3); GLUCOSE 130 mg/dL (74-106); POTASSIUM 3.2 mmol/L (3.5-5.1); SODIUM SERUM 145 mmol/L (136-145); UREA NITROGEN, BLOOD 13 mg/dL (7-18)
[2018-11-14] MEDS: PANTOPRAZOLE 40 MG TABLET.DR PO SCH ×2 (07:30→07:57)
--- NOTE | 2018-11-14 07:37 | NUR ---
MS RN OPENING NOTES RECEIVED PT IN BED, AWAKE. EASILY AWAKEN. A/O X1. TOLERATING RA, WITH NO SOB NOTED. NO PAIN NOTED. IVF OF NS AT 40ML/HR TO LFA G20, INTACT AND PATENT. PT KEPT COMFORTABLE. BED IN LOWEST, LOCKED POSITION WITH SR X2. CALL LIGHT KEPT WITHIN REACH. WILL CONTINUE PLAN OF CARE.
[2018-11-14 08:00] VITALS: BP 193/87
[2018-11-14] MEDS: hydrALAZINE HCL IV 20 MG VIAL IV PRN ×2 (08:13→16:48)
[2018-11-14] MEDS: ASCORBIC ACID 500 MG TABLET PO SCH ×2 (08:19→09:00)
[2018-11-14] MEDS: CELECOXIB 100 MG CAPSULE PO SCH ×2 (08:20→09:00)
[2018-11-14] MEDS: MULTIVIT W/MINERALS 1 TAB TABLET PO SCH ×2 (08:20→09:00)
[2018-11-14] MEDS: GABAPENTIN 300 MG CAPSULE PO SCH ×4 (08:20→17:00)
[2018-11-14] MEDS: DOCUSATE SODIUM 100 MG CAPSULE PO SCH ×2 (08:20→09:00)
[2018-11-14] MEDS: CYANOCOBALAMIN 500 MCG TABLET PO SCH ×2 (08:20→09:00)
[2018-11-14] MEDS: ZINC SULFATE 220 MG CAPSULE PO SCH ×2 (08:20→09:00)
[2018-11-14] MEDS: SIMETHICONE 80 MG TAB.CHEW PO SCH ×3 (08:20→17:00)
[2018-11-14] MEDS: HYDROGEL DRESSING 90 GM TUBE TP SCH (08:23)
[2018-11-14] MEDS ORDERED: SULF1TAB48 PO (08:26)
[2018-11-14] MEDS ORDERED: NITR100C6 PO ×2 (08:34→08:35)
[2018-11-14] MEDS: FLUTICASONE PROPIONATE 16 GM BOTTLE NS SCH ×2 (09:00→19:48)
--- NOTE | 2018-11-14 09:30 | NUR ---
MS RN NOTES PT ASSISTED WITH BREAKFAST. MORNING MEDICATIONS WERE REFUSED BY PT. MD [place] AWARE.
[2018-11-14] MEDS: POTASSIUM CHLORIDE 20 MEQ TAB.PRT.SR PO ONE ×3 (09:42→09:53)
[2018-11-14 16:00] VITALS: BP 159/89
--- NOTE | 2018-11-14 19:20 | NUR ---
RECEIVED REPORT FROM DECEMBER AND FOUND PT IN BED AWAKE AND CONFUSED, BREATHING EVENLY. NO SOB. NAD. TO BE DISCHARGED. AWAITING FOR TRANSPORTATION
--- NOTE | 2018-11-14 19:30 | NUR ---
MS RN CLOSING NOTES PT IN BED, AWAKE. A/O X1. TOLERATING RA, WITH NO SOB NOTED. NO PAIN NOTED. PIV TO LFA G24 NEWLY INSERTED WHEN PT WAS ABOUT TO BE DISCHARGE AROUND 1500. FIRE ENGINEER DIDNT TAKE HER WELL SNF. MD AWARE AND MONITORING FLUCTUATING BP AND HEART RATE. PT KEPT COMFORTABLE. BED IN LOWEST, LOCKED POSITION WITH SR X2. CALL LIGHT KEPT WITHIN REACH. PHOTO OF SACRAL TAKEN AND PLACED TO CHART. ENDORSED TO INCOMING CIGAR SORTER NURSE.
--- NOTE | 2018-11-14 19:50 | NUR ---
PT'S HR:115-120 AND AGITATED. PARAMEDICS HERE TO PICK THE PT TO BE DISCHARGED BACK TO [facility],. BUT UNABLE TO TAKE HER DUE TO HER HIGH HR. CALLED DR ANAND AND OBTAINED A ONE- TIME ORDER FOR MARCUS. NOTED.
[2018-11-14 20:00] VITALS: BP 126/77
[2018-11-14] MEDS ORDERED: LORAZEPAM INJ 2 MG/ML VIAL IV PRN (20:00)
--- NOTE | 2018-11-14 20:05 | NUR ---
ATIVAN GIVEN FOR AGITATION. PT ON CONTINUOUS PULSE OX MONITORING.
--- NOTE | 2018-11-14 20:35 | NUR ---
PT'S HR REMAINED ON 110-115. CALLED [facility] AND SPOKE TO JOHN THE CLINICAL COURIER. PER JOHN, THEY WON'T ACCEPT THE PT WITH HIGH HEAT RATE. PARAMEDICS LEFT THE HOSPITAL. WILL INFORM .
[2018-11-14] MEDS: CEFTRIAXONE 1 G in IV D5W 50 ML IV SCH (20:52)
[2018-11-14] MEDS: ENOXAPARIN SODIUM 40 MG/0.4 ML DISP.SYRIN SQ SCH (20:58)
[2018-11-14] MEDS: DONEPEZIL 5 MG TABLET PO SCH (21:56)
[2018-11-14] MEDS: TRAZODONE 50 MG TABLET PO SCH (21:56)
--- NOTE | 2018-11-14 22:00 | NUR ---
FSBS: 141. NO INSULIN COVERAGE PER SS GIVEN DUE TO POOR ORAL INTAKE, PT SPITTING OUT EVERYTHING AND REFUSING PO MEDS. WILL CONT TO MONITOR,
--- NOTE | 2018-11-14 22:37 | NUR ---
PT KEEP THE HR OF 105-110/ MINUTE. NO ACUTE DISTRESS. NO SOB. PER FACILITY THEY WILL NOT ACCEPT THE PT WITH HEART RATE>100. DR. ANAND MADE AWARE OF THE PT'S CONDITION, HER MED'S PROFILE AND NON- COMPLIANCE STATUS WITH PO MEDS. PER MD TO OBSERVE THE PT AND DISCHARGE IF THE HR<100. OTHERWISE OK TO KEEP THE PT OVER NIGHT SINCE THE FACILITY IS NOT ACCEPTING THE PT. CHARGE NURSE, FREDRICK, MADE AWARE. WILL CONT TO MONITOR,
--- NOTE | 2018-11-15 02:48 | NUR ---
PT IN BED DOZING INTERMITTENTLY. BREATHING EVENLY. NO SOB. ON ONGOING IVF HYDRATION,. REMAINED STABLE. NAD. WILL CONT TO MONITOR,
--- NOTE | 2018-11-15 06:23 | NUR ---
PT IN BED LAYING DOWN COMFORTABLY. BREATHING EVENLY. NO SOB. WITH OCCASIONAL COUGH. ON ONGOING IVF HYDRATION. IV SITE INTACT AND PATENT. NEEDS ATTENDED. CLEANED AND DRIED, GOOD SKIN CARE RENDERED. REPOSITIONED ROUTINELY. SRX2. BED LOW LOCKED. CALL LIGHT WITHIN REACH, WILL CONT TO MONITOR AND WILL ENDORSE TO AM SHIFT FOR MAYA.
[2018-11-15] MEDS: BLOOD SUGAR DIAGNOSTIC 1 EACH STRIP IN SCH ×2 (06:41→11:55)
--- NOTE | 2018-11-15 07:36 | NUR ---
MS RN OPENING NOTES RECEIVED PT IN BED AWAKE. TOLERATING RA, WITH NO ACUTE RESPIRATORY DISTRESS. HOB ELEVATED. PIV TO LFA G24, FLUSHED WITH NS, INTACT AND OPERATIONAL. PLAN FOR DISCHARGE TODAY. CONTINUE MONITORING FOR BP AND HR. PT'S BED KEPT IN LOWEST, LOCKED POSITION. CALL LIGHT WITHIN REACH. WILL CONTINUE PLAN OF CARE.
[2018-11-15] MEDS: PANTOPRAZOLE 40 MG TABLET.DR PO SCH (07:48)
[2018-11-15 08:39] VITALS: BP 168/71
[2018-11-15] MEDS: HYDROGEL DRESSING 90 GM TUBE TP SCH (08:46)
[2018-11-15] MEDS: CYANOCOBALAMIN 500 MCG TABLET PO SCH (08:47)
[2018-11-15] MEDS: ZINC SULFATE 220 MG CAPSULE PO SCH (08:47)
[2018-11-15] MEDS: CELECOXIB 100 MG CAPSULE PO SCH (08:47)
[2018-11-15] MEDS: ASCORBIC ACID 500 MG TABLET PO SCH (08:47)
[2018-11-15] MEDS: FLUTICASONE PROPIONATE 16 GM BOTTLE NS SCH (08:47)
[2018-11-15] MEDS: MULTIVIT W/MINERALS 1 TAB TABLET PO SCH (08:47)
[2018-11-15] MEDS: DOCUSATE SODIUM 100 MG CAPSULE PO SCH (08:47)
[2018-11-15] MEDS: GABAPENTIN 300 MG CAPSULE PO SCH (08:47)
[2018-11-15] MEDS: SIMETHICONE 80 MG TAB.CHEW PO SCH (08:47)
[2018-11-15] MEDS: hydrALAZINE HCL IV 20 MG VIAL IV PRN (09:41)
[2018-11-15] MEDS: IV NS 0.9% 1,000 ML IV PRN (09:49)
[2018-11-15 10:00] VITALS: BP 131/79
--- NOTE | 2018-11-15 10:15 | NUR ---
MS RN NOTES PT SEEN BY TO KEEP DIET AT FULL LIQUID WITH NECTAR THICK LIQUIDS.
--- NOTE | 2018-11-15 10:17 | NUR ---
MS RN NOTES PT WAD INCREASED BP. GAVE HYDRALAZINE IV ORDERED. RE CHECKED VS BP 131/79, HR 122, RR 19, T 98.0.
[2018-11-15 10:32] LABS: CALCIUM, SERUM 9.1 mg/dL (8.5-10.1); CARBON DIOXIDE 21 mmol/L (21-32); CHLORIDE 108 mmol/L (98-107); CREATININE 0.5 mg/dL (0.6-1.3); GLUCOSE 192 mg/dL (74-106); POTASSIUM 2.9 mmol/L (3.5-5.1); SODIUM SERUM 144 mmol/L (136-145); UREA NITROGEN, BLOOD 15 mg/dL (7-18)
[2018-11-15] MEDS: INSULIN REGULAR, HUMAN 100 UNIT/ML 3 ML VIAL SQ PRN (11:55)
[2018-11-15 12:00] VITALS: BP 120/71
--- NOTE | 2018-11-15 12:30 | NUR ---
MS RN NOTES CALLED REPORT TO [facility] NURSE FABIO. SPOKE TO MELANIA/DAMASO WELL REGARDING HR OF 114. AND OKAY TO SEND PT UNLES HR GOES UP TO 130 BPM. CN MADE AWARE.
--- NOTE | 2018-11-15 13:43 | NUR ---
MS SALES WAREHOUSE DRIVER NOTES PT RESTING IN BED, CALM. A/O X1. DISCHARGED TO [facility]. REPORT GIVEN TO FABIO. TRANSPORTED PT VIA GURNEY WITH 2 ACID BLOWER. LFA PIV REMOVED, APPLIED DRY DRESSING. NO BELONGING LIST PRESENT. PT UNABLE TO SIGN. DISCHARGE PAPERS GIVEN TO ACID BLOWER. ALL NEEDS AND CARE PROVIDED TO PT. PT LEFT THE UNIT AT 1330, WITH NO ACUTE SIGNS OF DISTRESS. DENIES PAIN.
--- NOTE | 2018-11-15 13:47 | NUR ---
MS RN NOTES (CONTINUATION OF DISCHARGE NOTES) CN AWARE OF PRESENT VS BP OF 104/59 AND HR OF 125-128 BPM. PISTURE OF SACRAL WAS TAKEN YESTERDAY 11/14/18 AND FILED ON THE CHART. CN AND MD AWARE OF DISCHARGE.
== END 2018-11-15 14:17 | DRG 690 ==
LOC: ER 15:35 → TELE 17:50 → MED 11-12 08:41
PROVIDERS: ADMIT Nurse Practitioner Acute Care; ATTEND Family Medicine
DX: N39.0 Urinary tract infection, site not specified (principal); E44.0 Moderate protein-calorie malnutrition; M79.7 Fibromyalgia; E78.5 Hyperlipidemia, unspecified; E11.9 Type 2 diabetes mellitus without complications; F03.90 Unspecified dementia, unspecified severity, without behavioral disturbance, psychotic disturbance, mood disturbance, and anxiety; Z66 Do not resuscitate; Z51.5 Encounter for palliative care; R13.10 Dysphagia, unspecified; I10 Essential (primary) hypertension; F20.9 Schizophrenia, unspecified; Z79.899 Other long term (current) drug therapy; E87.6 Hypokalemia; F29 Unspecified psychosis not due to a substance or known physiological condition; K59.09 Other constipation; Z79.84 Long term (current) use of oral hypoglycemic drugs; Z91.19 Patient's noncompliance with other medical treatment and regimen; L89.159 Pressure ulcer of sacral region, unspecified stage; D47.3 Essential (hemorrhagic) thrombocythemia
CPT/HCPCS: 36415; 71045-TC; 80048-TC; 80061-TC; 80076-TC; 81000-TC; 82962-TC; 83605-TC; 83735-TC; 84100-TC; 84443-TC; 84484-TC; 85025-TC; 85730-TC; 87040-TC; 87081-TC; 87086-TC; 87186-TC; 92526; 92611-TC; A6248; A6403; G0378; J0360; J0696; J1650; J1815; J2060; J3480; J7030; J7060